=== PATIENT | female | born 1995 | race Hispanic/Latino ===

== ENCOUNTER 2018-08-05 16:08 | Emergency (ER) | payer OTHER ==
--- NOTE | 2018-08-05 16:33 | EDPHYS ---
Physician Documentation [facility] Name: Juliana Boston Age: 22 yrs Sex: Female : 1995 Arrival Date: 08/05/2018 Time: 16:12 Bed 14 Private MD: ED Physician José Miguel Castro HPI: 08/05 16:30 This 22 yrs old Female presents to ER via Ambulatory with complaints of Belly jmm button infected. 16:30 The rash is located on the umbilical area. Onset: The symptoms/episode began/occurred jmm gradually, 1 month(s) ago. Associated signs and symptoms: Pertinent positives: drainage. The patient has not experienced similar symptoms in the past. This is a 22 year old female with no chronic medical conditions that presents to the ED with drainage from her umbilical region for 1 month. Patient denies fever or pain. . 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 - Social history:: Smoking status: Patient/guardian denies using tobacco. - Ebola Screening: : Patient negative for fever greater than or equal to 101.5 degrees Fahrenheit, and additional compatible Ebola Virus Disease symptoms Patient denies exposure to infectious person Patient denies travel to an Ebola-affected area in the 21 days before illness onset No symptoms or risks identified at this time. ROS: 16:30 Constitutional: Negative for fever, chills, and weight loss, Cardiovascular: Negative jmm for chest pain, palpitations, and edema, Respiratory: Negative for shortness of breath, cough, wheezing, and pleuritic chest pain, Abdomen/GI: Negative for abdominal pain, nausea, vomiting, diarrhea, and constipation. 16:30 Skin: Positive for erythema. 16:30 All other systems are negative. Exam: 16:30 Constitutional: This is a well developed, well nourished patient who is awake, alert, jmm and in no acute distress. Head/Face: atraumatic. Eyes: EOMI, no conjunctival erythema appreciated ENT: Moist Mucus Membranes Neck: Trachea midline, Supple Chest/axilla: Normal chest wall appearance and motion. Cardiovascular: Regular rate and rhythm. No edema appreciated Respiratory: Normal respirations, no respiratory distress appreciated Abdomen/GI: Non distended, soft 16:30 Skin: erythema noted to the umbilicus with foul smelling drainage appreciated. The area is non tender to palpation. No fluctuant mass is appreciated. 16:30 Neuro: Orientation: is normal, Mentation: is normal, Memory: is normal. 16:30 Psych: Behavior/mood is pleasant, cooperative. Vital Signs: 16:15 BP 122 / 70; Pulse 72; Resp 18; Temp 98.4; Pulse Ox 99% on R/A; Weight 99.79 kg; Height aj 5 ft. 5 in. (165.10 cm); 16:15 Body Mass Index 36.61 (99.79 kg, 165.10 cm) [facility]: 16:30 Patient medically screened. [facility] 16:30 Data reviewed: vital signs, nurses notes. Counseling: I had a detailed discussion with carlos the patient and/or guardian regarding: the historical points, exam findings, and any diagnostic results supporting the discharge/admit diagnosis, the need for outpatient follow up, to return to the emergency department if symptoms worsen or persist or if there are any questions or concerns that arise at home. Administered Medications: No medications were administered Disposition: 17:53 Co-signature as Attending Physician, José Miguel Castro MD. rn Disposition: 08/05/18 16:31 Discharged to Home. Impression: Cellulitis of abdominal wall. - Condition is Stable. - Discharge Instructions: Cellulitis, Adult. - Prescriptions for Bactroban 2 % Topical Ointment - Apply to affected area 1 application by TOPICAL route every 12 hours; 30 gram. Cephalexin 500 mg Oral Capsule - take 1 capsule by ORAL route every 6 hours for 10 days; 40 capsule. - Medication Reconciliation Form, Thank You Letter, Antibiotic Education, Prescription Opioid Use form. - Follow up: Private Physician; When: 2 - 3 days; Reason: Recheck today's complaints, Continuance of care, Re-evaluation by your physician. Signatures: Ami Brush RN RN ch Myers, Amanda, RN RN aj Mickail, Joel, PA PA jmm Nieto, Roman, MD MD external grinder tender: (The following items were deleted from the chart) 16:36 16:31 08/05/2018 16:31 Discharged to Home. Impression: Cellulitis of abdominal wall. ch Condition is Stable. Forms are Medication Reconciliation Form, Thank You Letter, Antibiotic Education, Prescription Opioid Use. Follow up: Private Physician; When: 2 - 3 days; Reason: Recheck today's complaints, Continuance of care, Re-evaluation by your physician. carlos
--- NOTE | 2018-08-05 16:33 | ER ---
Nurse's Notes [facility] Name: Juliana Boston Age: 22 yrs Sex: Female : 1995 Arrival Date: 08/05/2018 Time: 16:12 Bed 14 Private MD: Diagnosis: Cellulitis of abdominal wall Presentation: 08/05 16:14 Presenting complaint: Patient states: Itching and foul odor to belly button for 1 aj month. Patient went to Dr Joseph and was sent to ER. Transition of care: patient was not received from another setting of care. Onset of symptoms was July 05, 2018. Risk Assessment: Do you want to hurt yourself or someone else? Patient reports no desire to harm self or others. Initial Sepsis Screen: Does the patient meet any 2 criteria? No. Patient's initial sepsis screen is negative. Does the patient have a suspected source of infection? No. Patient's initial sepsis screen is negative. Care prior to arrival: None. 16:14 Method Of Arrival: Ambulatory aj 16:14 Acuity: OLGA 5 aj Triage Assessment: 16:15 General: Appears in no apparent distress. comfortable, Behavior is calm, cooperative, aj appropriate for age. Pain: Denies pain. Neuro: Level of Consciousness is awake, alert, obeys commands, Oriented to person, place, time, situation, Appropriate for age. Respiratory: Airway is patent Respiratory effort is even, unlabored, Respiratory pattern is regular, symmetrical. Derm: Skin is intact, is healthy with good turgor, Skin is pink, warm \T\ dry. normal. 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 - Social history:: Smoking status: Patient/guardian denies using tobacco. - Ebola Screening: : Patient negative for fever greater than or equal to 101.5 degrees Fahrenheit, and additional compatible Ebola Virus Disease symptoms Patient denies exposure to infectious person Patient denies travel to an Ebola-affected area in the 21 days before illness onset No symptoms or risks identified at this time. Screenin:30 Abuse screen: Denies threats or abuse. Denies injuries from another. Nutritional ch screening: No deficits noted. Tuberculosis screening: No symptoms or risk factors identified. Fall Risk None identified. Assessment: 16:30 Reassessment: Patient appears in no apparent distress at this time. Patient and/or ch family updated on plan of care and expected duration. Pain level reassessed. Patient is alert, oriented x 3, equal unlabored respirations, skin warm/dry/pink. General: Appears in no apparent distress. comfortable, Behavior is calm, cooperative, appropriate for age. Pain: Complains of pain in umbilical area Pain currently is 2 out of 10 on a pain scale. Neuro: Level of Consciousness is awake, alert, obeys commands, Oriented to person, place, time, situation. Respiratory: No deficits noted. GI: Abdomen is obese, Bowel sounds present X 4 quads. Abd is soft and non tender X 4 quads. Derm: Skin is pink, warm \T\ dry. pt belly button is slightly red and inflamed, pt has slight foul smell from it. no discharge noted, it is not tender to palpation, no masses felt. Vital Signs: 16:15 BP 122 / 70; Pulse 72; Resp 18; Temp 98.4; Pulse Ox 99% on R/A; Weight 99.79 kg; Height aj 5 ft. 5 in. (165.10 cm); 16:15 Body Mass Index 36.61 (99.79 kg, 165.10 cm) ED Course: 16:12 Patient arrived in ED. mr 16:15 Triage completed. 16:15 Arm band placed on left wrist. Patient placed in an exam room. 16:17 Ami Brush, RN is Primary Nurse. 16:19 Ishmael Leach PA is PHCP. [facility] 16:19 José Miguel Castro MD is Attending Physician. [facility] 16:30 No apparent distress. Resting quietly. 16:30 Patient has correct armband on for positive identification. Bed in low position. Call light in reach. 16:30 No provider procedures requiring assistance completed. Patient did not have IV access ch during this emergency room visit. Administered Medications: No medications were administered Outcome: 16:31 Discharge ordered by . [facility] 16:33 Discharged to home ambulatory, with family. 16:33 Condition: stable 16:33 Discharge instructions given to patient, Instructed on discharge instructions, follow up and referral plans. medication usage, Demonstrated understanding of instructions, follow-up care, medications, Prescriptions given X 2. 16:36 Patient left the ED. ch Signatures: Aim Brush RN RN ch Myers, Amanda, RN RN aj Mickail, Joel, PA PA jmm Rivera, Valerie mr Corrections: (The following items were deleted from the chart) 16:38 16:33 Discharge instructions given to patient, Instructed on discharge instructions, follow up and referral plans. medication usage, Demonstrated understanding of instructions, follow-up care, medications, Prescriptions given X 1, ch
[2018-08-05 17:54] VITALS: BP 122/70; TEMP 98.4; O2SAT 99
== END 2018-08-05 16:36 | disposition home or self-care (01) ==
LOC: ER 16:08
DX: L03.311 Cellulitis of abdominal wall (principal)
CPT/HCPCS: 99282

== ENCOUNTER 2018-08-22 18:21 | Emergency (ER) | payer OTHER ==
--- NOTE | 2018-08-22 20:18 | ER ---
Nurse's Notes [facility] Name: Juliana Boston Age: 22 yrs Sex: Female : 1995 Arrival Date: 08/22/2018 Time: 18:26 Bed 20 Private MD: Diagnosis: Cellulitis of abdominal wall Presentation: 08/22 18:42 Presenting complaint: Patient states: I had a in 2014 and the site is painful la1 and a little discolored. Transition of care: patient was not received from another setting of care. Onset of symptoms was August 22, 2018. Risk Assessment: Do you want to hurt yourself or someone else? Patient reports no desire to harm self or others. Initial Sepsis Screen: Does the patient meet any 2 criteria? No. Patient's initial sepsis screen is negative. Does the patient have a suspected source of infection? No. Patient's initial sepsis screen is negative. Care prior to arrival: None. 18:42 Method Of Arrival: Ambulatory la1 18:42 Acuity: OLGA 3 la1 Triage Assessment: 20:30 General: Behavior is calm. lp1 Historical: - Allergies: 18:43 No Known Allergies; la1 - PMHx: 18:43 None; la1 - Immunization history:: Adult Immunizations up to date. - Social history:: Smoking status: Patient/guardian denies using tobacco. - Ebola Screening: : No symptoms or risks identified at this time. - Family history:: not pertinent. - Hospitalizations: : No recent hospitalization is reported. Screenin:54 Abuse screen: Denies threats or abuse. Denies injuries from another. Nutritional lp1 screening: No deficits noted. Tuberculosis screening: No symptoms or risk factors identified. Fall Risk None identified. Assessment: 20:15 General: Appears in no apparent distress. Pain: Complains of pain in left lower lp1 quadrant. Neuro: No deficits noted. Cardiovascular: No deficits noted. Respiratory: No deficits noted. GI: No deficits noted. : No deficits noted. EENT: No deficits noted. Derm: Abscess located on left lower quadrant is dime sized. Musculoskeletal: No deficits noted. Vital Signs: 18:43 BP 123 / 73; Pulse 74; Resp 16; Temp 98.1; Pulse Ox 98% on R/A; Weight 99.79 kg; Height la1 5 ft. 5 in. (165.10 cm); 20:29 BP 107 / 71; Pulse 78; Resp 16; Pulse Ox 99% on R/A; lp1 18:43 Body Mass Index 36.61 (99.79 kg, 165.10 cm) la1 ED Course: 18:26 Patient arrived in ED. sb2 18:43 Triage completed. la1 18:43 Arm band placed on right wrist. la1 19:45 José Miguel Castro MD is Attending Physician. rn 19:54 Niurka Diaz, RN is Primary Nurse. lp1 19:55 Patient has correct armband on for positive identification. lp1 19:55 No provider procedures requiring assistance completed. Patient did not have IV access lp1 during this emergency room visit. Administered Medications: 20:29 Drug: Clindamycin 300 mg Route: PO; lp1 20:29 Follow up: Response: Medication administered at discharge. lp1 Outcome: 20:18 Discharge ordered by . rn 20:30 Discharged to home ambulatory. lp1 20:30 Condition: good 20:30 Discharge instructions given to patient, Instructed on discharge instructions, follow up and referral plans. medication usage, Demonstrated understanding of instructions, follow-up care, medications, Prescriptions given X 1. 20:31 Patient left the ED. lp1 Signatures: José Miguel Castro MD MD rn Pena, Laura RN RN lp1 Valdez Martínez RN RN la1 Lela Joseph sb2
--- NOTE | 2018-08-22 20:19 | EDPHYS ---
Physician Documentation [facility] Name: Juliana Boston Age: 22 yrs Sex: Female : 1995 Arrival Date: 08/22/2018 Time: 18:26 Bed 20 Private MD: ED Physician José Miguel Castro HPI: 08/22 20:15 This 22 yrs old Female presents to ER via Ambulatory with complaints of Post rn Problem. 20:15 the patient presents with a swollen area of the abdomen. Onset: The symptoms/episode rn began/occurred yesterday. Possible cause(s): unknown. Severity of symptoms: At their worst the symptoms were very mild, in the emergency department the symptoms are unchanged. The patient has not experienced similar symptoms in the past. Reports mild redness and swelling to left side of wound, was 3 years ago, has always had pain there, but last couple of days with swelling and redness, + drainage, no fever. . Historical: - Allergies: 18:43 No Known Allergies; la1 - PMHx: 18:43 None; la1 - Immunization history:: Adult Immunizations up to date. - Social history:: Smoking status: Patient/guardian denies using tobacco. - Ebola Screening: : No symptoms or risks identified at this time. - Family history:: not pertinent. - Hospitalizations: : No recent hospitalization is reported. ROS: 20:15 Constitutional: Negative for fever, chills, and weight loss, Eyes: Negative for injury, rn pain, redness, and discharge, Cardiovascular: Negative for chest pain, palpitations, and edema, Respiratory: Negative for shortness of breath, cough, wheezing, and pleuritic chest pain, Abdomen/GI: + lower abd pain at wound site MS/Extremity: Negative for injury and deformity, Skin: + redness at lateral edge of wound Neuro: Negative for headache, weakness, numbness, tingling, and seizure. Exam: 20:15 Constitutional: This is a well developed, well nourished patient who is awake, alert, rn and in no acute distress. Abdomen/GI: soft, non-tender, + mild erythema and induration left lateral edge of scar, no drainage, no fluctuance. Vital Signs: 18:43 BP 123 / 73; Pulse 74; Resp 16; Temp 98.1; Pulse Ox 98% on R/A; Weight 99.79 kg; Height la1 5 ft. 5 in. (165.10 cm); 20:29 BP 107 / 71; Pulse 78; Resp 16; Pulse Ox 99% on R/A; lp1 18:43 Body Mass Index 36.61 (99.79 kg, 165.10 cm) la1 MDM: 19:45 Patient medically screened. rn 20:15 Differential diagnosis: cellulitis. Data reviewed: vital signs, nurses notes, and as a rn result, I will discharge patient. Counseling: I had a detailed discussion with the patient and/or guardian regarding: the historical points, exam findings, and any diagnostic results supporting the discharge/admit diagnosis, the need for outpatient follow up, to return to the emergency department if symptoms worsen or persist or if there are any questions or concerns that arise at home. Special discussion: I discussed with the patient/guardian in detail that at this point there is no indication for admission to the hospital. It is understood, however, that if the symptoms persist or worsen the patient needs to return immediately for re-evaluation. Based on the history and exam findings, there is no indication for further emergent testing or inpatient evaluation. I discussed with the patient/guardian the need to see the primary care provider for further evaluation of the symptoms. ED course: Recommended warm compresses and abx, for early cellulitis, no fluctuance, already draining, no deep abd tenderness, return precautions given and understood. . Administered Medications: 20:29 Drug: Clindamycin 300 mg Route: PO; lp1 20:29 Follow up: Response: Medication administered at discharge. lp1 Disposition: 18 20:18 Discharged to Home. Impression: Cellulitis of abdominal wall. - Condition is Stable. - Discharge Instructions: Cellulitis, Adult. - Prescriptions for Clindamycin HCl 300 mg Oral Capsule - take 1 capsule by ORAL route every 6 hours for 10 days; 40 capsule. - Medication Reconciliation Form, Thank You Letter, Antibiotic Education, Prescription Opioid Use form. - Follow up: Private Physician; When: 2 - 3 days; Reason: Wound Recheck, Recheck today's complaints, Re-evaluation by your physician. - Problem is new. - Symptoms have improved. Signatures: José Miguel Castro MD MD rn Pena, Laura, RN RN lp1 Valdez Martínez RN RN la1 Corrections: (The following items were deleted from the chart) 20:31 20:18 08/22/2018 20:18 Discharged to Home. Impression: Cellulitis of abdominal wall. lp1 Condition is Stable. Forms are Medication Reconciliation Form, Thank You Letter, Antibiotic Education, Prescription Opioid Use. Follow up: Private Physician; When: 2 - 3 days; Reason: Wound Recheck, Recheck today's complaints, Re-evaluation by your physician. Problem is new. Symptoms have improved. rn
[2018-08-22] MEDS ORDERED: CLINDAMYCIN HCL 150 MG CAP ONE (20:29)
[2018-08-22 20:54] VITALS: TEMP 98.1
[2018-08-22 20:56] VITALS: BP 107/71; O2SAT 99
== END 2018-08-22 20:31 | disposition home or self-care (01) ==
LOC: ER 18:21
DX: L03.311 Cellulitis of abdominal wall (principal)
CPT/HCPCS: 99283

== ENCOUNTER 2019-05-06 12:15 | Emergency (ER) | payer OTHER ==
--- OUTSIDE RECORDS SUMMARY | 2019-05-06 12:17 | XMS REPORT | Summary of Care ---
:1995 Author Organization [facility] - Health Address [address] [place] [id number] Care Team Providers Name Role Phone Loretta Zheng Henry MOTTA Primary Care Provider Encounter Details Date Type Department Care Team Description 04/14/2019 Orders Only [facility] Doctor Unassigned, No [address] [facility] Name [place] [id number] [address] [place] [address] Allergies No Known Allergiesdocumented as of this encounter (statuses as of 04/15/2019) Medications Medication Sig Dispensed Refills Start Date End Date Status PNV 67-iron ps-folate Take 1 capsule by 30 capsule 6 04/01/2019 Active no.1-dha (VITAFOL mouth daily. ULTRA) 29 mg iron- 1 mg-200 mg CapIndications: High-risk in first trimester documented as of this encounter (statuses as of 04/15/2019) Active Problems Problem Noted Date Complete 04/05/2019 Acute cystitis without hematuria 04/05/2019 Susceptible to varicella (non-immune), currently 04/04/2019 History of delivery, currently 04/01/2019 Obesity affecting , antepartum 04/01/2019 High-risk in first trimester 04/01/2019 History of depression, currently 04/01/2019 Bleeding in early 04/01/2019 Multiparity 04/01/2019 documented as of this encounter (statuses as of 04/15/2019) Resolved Problems Problem Noted Date Resolved Date Well woman exam with routine gynecological exam 12/12/2015 04/01/2019 Screen for STD (sexually transmitted disease) 12/12/2015 04/01/2019 Contraception 12/12/2015 04/01/2019 Initiation of OCP (BCP) 12/12/2015 04/01/2019 documented as of this encounter (statuses as of 04/15/2019) Immunizations Name Administration Dates Next Due Tdap 12/03/2014 documented as of this encounter Social History Tobacco Use Types Packs/Day Years Used Date Never Smoker Smokeless Tobacco: Never Used Alcohol Use Drinks/Week oz/Week Comments No 0 Standard drinks or equivalent 0.0 Sex Assigned at Date Recorded Not on file Job Start Date Occupation Industry Not on file Not on file Not on file Travel History Travel Start Travel End No recent travel history available. documented as of this encounter Last Filed Vital Signs Not on filedocumented in this encounter Plan of Treatment Date Type Specialty Care Team Description 04/18/2019 Routine Visit [facility] [employer]ellites Loretta Zheng, [employer] SUPERVIS[employer] [address] [place], [place] [id number] Health Maintenance Due Date Last Done Comments MENINGOCOCCAL B VACCINES (1 of 2005 2 - Risk Bexsero 2-dose series) VARICELLA VACCINES (1 of 2 - 2008 13+ 2-dose series) HPV VACCINES (1 - Female 2010 3-dose series) PAP SMEAR 2016 INFLUENZA VACCINE 05/22/2019 CHLAMYDIA SCREENING 04/01/2020 04/01/2019, 12/12/2015 DTaP,Tdap,and Td Vaccines (2 - 12/03/2024 12/03/2014 Td) PNEUMOCOCCAL 0-64 YEARS Aged Out No longer eligible based COMBINED SERIES on patient's age to complete this topic documented as of this encounter Procedures Procedure Name Priority Date/Time Associated Diagnosis Comments AUTHORIZATION FOR RELEASE Routine 04/14/2019 12:01 AM OF PHI CDT documented in this encounter Results Not on filedocumented in this encounter Insurance Payer Benefit Plan / Subscriber ID Effective Phone Address Type Group Dates [facility] xxxxxxxxx 2015-[facility] [phone] [place] [id number] [place] [address] [facility] xxxxxxxxx 2019-[employer] Medicaid [employer] nt HEALTH PLAN - MANAGED MEDICAID documented as of this encounter
--- OUTSIDE RECORDS SUMMARY | 2019-05-06 12:17 | XMS REPORT ---
:1995 Author [facility] Address [address] [place] [address] Dr. Craig[address] [place] [id number] Care Team Providers Name Role Phone Unavailable Unavailable Unavailable Problems This patient has no known problems. Allergies, Adverse Reactions, Alerts This patient has no known allergies or adverse reactions. Medications This patient has no known medications.
--- NOTE | 2019-05-06 13:06 | ER ---
Nurse's Notes [facility] Name: Juliana Boston Age: 23 yrs Sex: Female : 1995 Arrival Date: 05/06/2019 Time: 12:17 Bed 11 Private MD: Jami Hand Diagnosis: Contact Dermatitis Presentation: 05/06 12:19 Presenting complaint: Patient states: I have an itchy rash on my upper left calf area. la1 I am allergic to poison rebecca and Im not sure it that's what it is but it might be. Transition of care: patient was not received from another setting of care. Onset of symptoms was May 06, 2019. Risk Assessment: Do you want to hurt yourself or someone else? Patient reports no desire to harm self or others. Initial Sepsis Screen: Does the patient meet any 2 criteria? No. Patient's initial sepsis screen is negative. Does the patient have a suspected source of infection? No. Patient's initial sepsis screen is negative. Care prior to arrival: None. 12:19 Method Of Arrival: Ambulatory la1 12:19 Acuity: OLGA 4 la1 Historical: - Allergies: 12:20 No Known Allergies; la1 - PMHx: 12:20 None; la1 - Immunization history:: Adult Immunizations up to date. - Social history:: Smoking status: Patient/guardian denies using tobacco. - Ebola Screening: : No symptoms or risks identified at this time. Screenin:27 Abuse screen: Denies threats or abuse. Nutritional screening: No deficits noted. la1 Tuberculosis screening: No symptoms or risk factors identified. Fall Risk None identified. Assessment: 12:26 General: Appears in no apparent distress. Behavior is calm, cooperative. Pain: Denies la1 pain. Neuro: Level of Consciousness is awake, alert, obeys commands, Oriented to person, place, time, situation. Cardiovascular: Capillary refill < 3 seconds Patient's skin is warm and dry. Respiratory: Airway is patent Respiratory effort is even, unlabored, Respiratory pattern is regular, symmetrical. GI: No signs and/or symptoms were reported involving the gastrointestinal system. : No signs and/or symptoms were reported regarding the genitourinary system. Derm: Red, raised, urticaric, maculopapular rash noted to left proximal posterior thigh. Vital Signs: 12:20 BP 103 / 83; Pulse 82; Resp 16; Temp 98.6; Pulse Ox 98% on R/A; Weight 108.86 kg; la1 Height 5 ft. 5 in. (165.10 cm); 12:20 Body Mass Index 39.94 (108.86 kg, 165.10 cm) la1 ED Course: 12:17 Patient arrived in ED. rg4 12:17 Jami Hand MD is Private Physician. rg4 12:17 [facility] m 12:17 José Miguel Castro MD is Attending Physician. jmm 12:20 Triage completed. la1 12:20 Arm band placed on left wrist. la1 12:26 Valdez Martínez, RN is Primary Nurse. la1 12:27 Call light in reach. la1 13:05 Jami Hand MD is Referral Physician. [facility] Administered Medications: No medications were administered Outcome: 13:05 Discharge ordered by MD. [facility] 13:19 Patient left the ED. iw Signatures: Ishmael Leach PA PA jmm Williams, Irene, RN HERVE Valdez Martínez, RN RN Claire Malloy rg4
--- NOTE | 2019-05-06 13:06 | EDPHYS ---
Physician Documentation [facility] Name: Juliana Boston Age: 23 yrs Sex: Female : 1995 Arrival Date: 05/06/2019 Time: 12:17 Bed 11 Private MD: Jami Hand ED Physician José Miguel Castro HPI: 05/06 12:20 This 23 yrs old Female presents to ER via Ambulatory with complaints of Rash. jmm 12:20 The patient's rash thought to be caused by Dermatitis. The rash is located on the right jmm leg and left leg. Onset: The symptoms/episode began/occurred gradually, 2 day(s) ago. Associated signs and symptoms: Pertinent positives: itching, Pertinent negatives: fever. This is a 23 year old female with no chronic medical conditions that presents to the ED with complaints of an itchy rash which has spread from her left leg to her right leg. Patient states she was exposed to an unknown plant in her mothers backyard prior to developing the rash. Patient states she is allergic to poison rebecca. . Historical: - Allergies: 12:20 No Known Allergies; la1 - PMHx: 12:20 None; la1 - Immunization history:: Adult Immunizations up to date. - Social history:: Smoking status: Patient/guardian denies using tobacco. - Ebola Screening: : No symptoms or risks identified at this time. ROS: 12:20 Constitutional: Negative for fever, chills, and weight loss, Cardiovascular: Negative jmm for chest pain, palpitations, and edema, Respiratory: Negative for shortness of breath, cough, wheezing, and pleuritic chest pain. 12:20 Skin: Positive for rash. 12:20 All other systems are negative. Exam: 12:20 Head/Face: atraumatic. Eyes: EOMI, no conjunctival erythema appreciated ENT: Moist jmm Mucus Membranes Neck: Trachea midline, Supple Chest/axilla: Normal chest wall appearance and motion. Cardiovascular: Regular rate and rhythm. No edema appreciated Respiratory: Normal respirations, no respiratory distress appreciated Abdomen/GI: Non distended, soft Back: Normal ROM 12:20 MS/ Extremity: Moves all extremities, no obvious deformities appreciated, no edema noted to the lower extremities Neuro: Awake and alert, normal gait Psych: Behavior is normal, Mood is normal, Patient is cooperative and pleasant 12:20 Constitutional: The patient appears in no acute distress, alert, awake. 12:20 Skin: erythematous rash noted to the right and left leg, most pronounced on the posterior left leg. non tender to palpation. . Vital Signs: 12:20 BP 103 / 83; Pulse 82; Resp 16; Temp 98.6; Pulse Ox 98% on R/A; Weight 108.86 kg; la1 Height 5 ft. 5 in. (165.10 cm); 12:20 Body Mass Index 39.94 (108.86 kg, 165.10 cm) la1 MDM: 12:21 Patient medically screened. [facility] 13:05 Data reviewed: vital signs, nurses notes. Counseling: I had a detailed discussion with [facility] the patient and/or guardian regarding: the historical points, exam findings, and any diagnostic results supporting the discharge/admit diagnosis, the need for outpatient follow up, to return to the emergency department if symptoms worsen or persist or if there are any questions or concerns that arise at home. 13:05 ED course: Patient is alert and non toxic in appearance. Rash appears due to [facility] dermatitis. Patient advised to follow up with pcp and otherwise given strict return precautions. Patient understood and agrees with the plan of care. . Administered Medications: No medications were administered Disposition: 18:09 Co-signature as Attending Physician, José Miguel Castro MD. rn Disposition: 05/06/19 13:05 Discharged to Home. Impression: Contact Dermatitis. - Condition is Stable. - Discharge Instructions: Contact Dermatitis. - Prescriptions for Hydroxyzine HCl 25 mg Oral Tablet - take 1 tablet by ORAL route every 6 hours As needed; 12 tablet. Prednisone 20 mg Oral Tablet - take 3 tablet by ORAL route once daily for 12 days Take 3 tabs by mouth daily for 3 days, then 2 tabs by mouth daily for 3 days, then 1 tab by mouth daily for 3 days, then 1/2 tab by mouth daily for 3 days; 20 tablet. - Medication Reconciliation Form, Thank You Letter, Antibiotic Education, Prescription Opioid Use form. - Follow up: Jami Hand MD; When: 2 - 3 days; Reason: Recheck today's complaints, Continuance of care, Re-evaluation by your physician. Signatures: Ishmael Leach PA PA m Norm, Francisca, RN RN iw Castro, José Miguel, MD MD rn Attema, Valdez, RN RN la1 Corrections: (The following items were deleted from the chart) 13:19 13:05 05/06/2019 13:05 Discharged to Home. Impression: Contact Dermatitis. Condition is iw Stable. Forms are Medication Reconciliation Form, Thank You Letter, Antibiotic Education, Prescription Opioid Use. Follow up: Jami Hand; When: 2 - 3 days; Reason: Recheck today's complaints, Continuance of care, Re-evaluation by your physician. carlos
[2019-05-06 13:28] VITALS: BP 103/83; TEMP 98.6; O2SAT 98
== END 2019-05-06 13:19 | disposition home or self-care (01) ==
LOC: ER 12:15
DX: L25.9 Unspecified contact dermatitis, unspecified cause (principal)
CPT/HCPCS: 99281

== ENCOUNTER 2024-09-16 23:46 | Emergency (ER) | payer SELFPAY ==
--- OUTSIDE RECORDS SUMMARY | 2024-09-16 23:51 | XMS REPORT | Continuity of Care Document ---
Author Name Unknown Address [address] [facility]. [address] [place] [address] [facility] thconnect Address [address] [facility] [address] [place] [address] Care Team Providers Care Airborne And Air Delivery Specialist Name Role Phone PCP, PATIENT DOES NOT HAVE A Primary Care Physic dheeraj Unavailable OBIE PANCHAL Attending Clinician Unavailable SAMIRA TARANGO Attending Clinician Unavailable VALENTINA RANGEL Attending Clinician Unavailable JENAE MYRICK Attending Clinician UnavailJENAE Holden Attending Clinician UnavailCARYN Vivar Attending Clinician Unavailable Pcp, Patient Does Not Have A Attending Clinician JOSE DALEY Attending Clinician JOSE Summers Attending Clinician Caryn Calvo MD Attending Clinician [phone], [facility] Attending Clinician Unavailable Doctor Unassigned, Manuel Garcia Ii Attending Clinician U navailable Lab, Ang - Db Attending Clinician Unavailable Ultrasound, Ang-Mfm Attending Clinician Meaghan Birmingham MD Attending Clinician [phone] MEAGHAN BRONSON Attending Clinician Unavailable Precious Gutiérrez MD Attending Clinician + PRECIOUS GUTIÉRREZ MEGAN Attending Clinician Unav ailable DAMI DELEON Attending Clinician Unavailable Dami Deleon MD Attending Clinician [phone] JOSELIN GILMAN Attending Clinician Unavailable Joselin Gilman MD Attending Clinician [phone] DOYLE-GRAHAM, JOSE Admitting Clinician CARYN Calvo Admitting Clinician Unavailable Caryn Chavira MD Admitting Clinician [phone] JOSELIN GILMAN Admitting Clinician Unavailable Payers Payer Name Policy Type Policy Number Effective Date Expirati on Date Source [place] [employer] [id number] 2022 00:00:00 Problems Condition Name Condition Details Condition Category Status Onset Date Resolution Date Last Treatment Date Treating Clinician Comments Source BMI 40.0-44.9, adult BMI 40.0-44.9, adult Disease Active 8- 00:00: 00 [facility] Encounter for post surgical wound check Encounter for post surgical wound check Disease Active 0 8-15 00:00: 00 [facility] Edema of both feet Edema of both feet Disease Active 0 8-15 00:00: 00 [facility] Liveborn infant, of mata , born in hospital by delivery Liveborn , of mata , born in hospital by delivery Disease Active 8-09 00:00: 00 [facility] Term of Term of infant Disease Active 0 8-07 00:00: 00 [facility] Rupture of membranes with meconium present Rupture of membranes with meconium present Disease Active 0 8-07 00:00: 00 [facility] Sore in mouth Sore in mouth Disease Active 0 8-02 00:00: 00 [facility] 27 weeks gestation of 27 weeks gestation of Disease Active 5-22 00:00: 00 Overview: Formattin g of this note might be different from the original. Added automatic ally from request for surgery [id number] [facility] Need for Tdap vaccinatio n Need for Tdap vaccinatio n Disease Active 5-22 00:00: 00 Overview: Formattin g of this note might be different from the original. Added automatic ally from request for surgery [id number] [facility] High-risk in second trimester High-risk in second trimester Disease Active 5-19 00:00: 00 [facility] Fatty liver Fatty liver Disease Active 4-14 00:00: 00 [facility] History of anemia History of anemia Disease Active 4-14 00:00: 00 [facility] Morbid obesity with body mass index of 40.0-49.9 Morbid obesity with body mass index of 40.0-49.9 Disease Active 3-14 00:00: 00 [facility] Obesity (BMI 35.0-39.9 without comorbidit y) Obesity (BMI 35.0-39.9 without comorbidit y) Disease Active 3-14 00:00: 00 [facility] Nausea Nausea Disease Active 2-17 00:00: 00 [facility] Complete Complete Disease Active 16 00:00: 00 [facility] Acute cystitis without hematuria Acute cystitis without hematuria Disease Active 16 00:00: 00 [facility] Susceptibl e to varicella (non-immun e), currently Susceptibl e to varicella (non-immun e), currently Disease Active 15 00:00: 00 [facility] Multiparit y Multiparit y Disease Active 04-01 00:00: 00 [facility] Bleeding in early Bleeding in early Disease Active 04-01 00:00: 00 [facility] History of delivery, currently History of delivery, currently Disease Active 04-01 00:00: 00 [facility] Obesity affecting , antepartum Obesity affecting , antepartum Disease Active 04-01 00:00: 00 [facility] High-risk in third trimester High-risk in third trimester Disease Active 04-01 00:00: 00 [facility] , incidental , incidental Disease Active 04-01 00:00: 00 [facility] History of depression , currently History of depression , currently Disease Active 04-01 00:00: 00 [facility] Bleeding in early Bleeding in early Disease Active 04-01 00:00: 00 [facility] Encounter for routine follow-up Encounter for routine follow-up Disease Active 3 00:00: 00 [facility] Allergies, Adverse Reactions, Alerts Allergy Name Allergy Type Status Severity Reaction(s) Onset Date Inactive Date Treating Clinician Comments Source NO KNOWN ALLERGIE S Drug Class Active [facility] Social History Social Habit Start Date Stop Date Quantity Comments Source ASSERTION 2022-08-10 00:00:00 [facility] Gender identity [facility] Sexual orientation [facility] Exposure to SARS-CoV-2 (event) 2023-01-27 00:00:00 2023-02-06 12:57:00 Not sure [facility] Alcohol intake 2023-01-02 00:00:00 2023-01-02 00:00:00 Ex-drinker (finding) [facility] Tobacco use and exposure 2022-11-07 00:00:00 2022-11-07 00:00:00 Smokeless tobacco non-user [facility] History of Social function 2019-04-01 00:00:00 2019-04-01 00:00:00 [facility] Sex Assigned At 1995 00:00:00 1995 00:00:00 [facility] Smoking Status Start Date Stop Date Source Never smoked tobacco [facility] Medications Ordered Medication Name Filled Medication Name Start Date Stop Date Current Medication? Ordering Clinician Indication Dosage Frequency Signature (SIG) Comments Components Source PNV no.95/lashonda us fum/folic ac ( ORAL) 04-29 12:57: 46 04-29 00:00 :00 No Take by mouth. [facility] SELECT-OB + DHA 29 mg iron-1 mg -250 mg combo pack 04-29 00:00: 00 Yes TAKE 1 CAPLET AND 1 CAPSULE BY MOUTH IN THE MORNING. [facility] vitamin w/FA tablet 04-29 00:00: 00 Yes [id number] 1{tbl} Take 1 tablet by mouth in the morning. [facility] docusate 100 mg capsule 04-29 00:00: 00 Yes [id number] 200mg Take 2 capsules by mouth once daily as needed for Constipati on. [facility] ferrous sulfate 325 mg (65 mg iron) tablet 04-29 00:00: 00 Yes [id number] 325mg Take 1 tablet by mouth in the morning and 1 tablet in the evening. [facility] ibuprofen 600 mg tablet 04-29 00:00: 00 Yes [id number] 600mg Take 1 tablet by mouth every 6 (six) hours as needed (Pain). Take with food or milk. [facility] acetaminoph en (TYLENOL) 325 mg tablet 04-29 00:00: 00 Yes [id number] 650mg Take 2 tablets by mouth every 6 (six) hours as needed for Pain (scale 1-3) or Pain (scale 4-6). [facility] HYDROcodone -acetaminop hen 5-325 mg tablet 04-29 00:00: 00 05-07 04:59 :00 No [id number] 1{tbl} Take 1 tablet by mouth every 6 (six) hours as needed for Pain (scale 4-6) (Alternate with Ibuprofen) for up to 7 days. Indication s: acute pain [facility] gabapentin 300 mg capsule 04-29 00:00: 00 05-05 04:59 :00 No [id number] 300mg Take 1 capsule by mouth in the morning and 1 capsule at noon and 1 capsule in the evening. Do all this for 5 days. [facility] heparin (porcine) injection 5,000 Units 04-28 13:00: 00 Yes 5000U 5,000 Units, Subcutaneo us, Q12H, First dose on Thu04/28/23 at 0800, Until Discontinu ed, Routine [facility] sodium chloride 0.9 % irrigation solution 04-28 05:00: 00 Yes PRN, Starting on Thu04/28/23 at 0000, Until Discontinu ed, Intra-op [facility] naloxone (NARCAN) injection 0.2 mg 04-28 04:23: 39 Yes .2mg 0.2 mg, Intramuscu lar, Q3HPRN, Starting on Thu04/27/23 at 2323, Until Discontinu ed, Routine, Itching [facility] naloxone (NARCAN) injection 0.4 mg 04-28 04:23: 39 04-29 15:02 :22 No .4mg 0.4 mg, Slow IV Push, PRN - SEE INSTRUCTIO NS, Starting on Thu04/27/23 at 2323, Until Thu04/29/23 at 1002, Routine, Analgesia Recovery [facility] lactated ringers IV infusion 1,000 mL 04-28 04:15: 00 04-28 08:21 :40 No 1000mL at 125 mL/hr, 1,000 mL, IV Infusion, ONCE, 1 dose, On Thu04/27/23 at 2315, Routine [facility] rho(D) immune globulin (RHOGAM) syringe 300 mcg 04-28 03:30: 09 Yes 300ug 300 mcg, Intramuscu lar, ONCE, For 1 dose, Conditiona l, Routine [facility] HYDROcodone -acetaminop hen (NORCO 5) 5-325 mg tablet 2 tablet 04-28 03:29: 53 Yes 2{tbl} 2 tablet, Oral, Q6HPRN, Starting on Thu04/27/23 at 2229, Until Discontinu ed, Routine, Pain (scale 7-10), Alternate with Ibuprofen [facility] HYDROcodone -acetaminop hen (NORCO 5) 5-325 mg tablet 1 tablet 04-28 03:29: 50 Yes 1{tbl} 1 tablet, Oral, Q6HPRN, Starting on Thu04/27/23 at 2229, Until Discontinu ed, Routine, Pain (scale 4-6), Alternate with Ibuprofen [facility] ibuprofen (IBU) tablet 600 mg 04-28 03:29: 46 Yes 600mg 600 mg, Oral, Q6HPRN, Starting on Thu04/27/23 at 2229, Until Discontinu ed, Routine, Pain (scale 1-3) [facility] diphenhydrA MINE (BENADRYL) injection 25 mg 04-28 03:28: 08 Yes 25mg 25 mg, Slow IV Push, Q6HPRN, Starting on Thu04/27/23 at 2228, Until Discontinu ed, Routine, Itching [facility] diphenhydrA MINE (BENADRYL) tablet 25 mg 04-28 03:28: 08 Yes 25mg 25 mg, Oral, Q6HPRN, Starting on Thu04/27/23 at 2228, Until Discontinu ed, Routine, Sleep, Itching [facility] ondansetron (ZOFRAN (PF)) injection 4 mg 04-28 03:28: 08 Yes 4mg 4 mg, Slow IV Push, Q8HPRN, Starting on Thu04/27/23 at 2228, Until Discontinu ed, Routine, Nausea and Vomiting (N/V) [facility] bisacodyL (DULCOLAX) suppository 10 mg 04-28 03:28: 08 Yes 10mg 10 mg, Rectal, QDAILYPRN, Starting on Thu04/27/23 at 2228, Until Discontinu ed, Routine, Constipati on [facility] simethicone (GAS RELIEF (SIMETHICON E)) chewable tablet 160 mg 04-28 03:28: 08 Yes 160mg 160 mg, Oral, PC+HSPRN, Starting on Thu04/27/23 at 2228, Until Discontinu ed, Routine, Gas [facility] docusate (COLACE) capsule 200 mg 04-28 03:28: 08 Yes 200mg 200 mg, Oral, QDAILYPRN, Starting on Thu04/27/23 at 2228, Until Discontinu ed, Routine, Constipati on [facility] magnesium hydroxide (MILK OF MAGNESIA) 400 mg/5 mL suspension 30 mL 04-28 03:28: 08 Yes 30mL 30 mL, Oral, QDAILYPRN, Starting on Thu04/27/23 at 2228, Until Discontinu ed, Routine, Constipati on [facility] lactated ringers IV infusion 1,000 mL 04-28 03:28: 08 Yes 1000mL at 125 mL/hr, 1,000 mL, IV Infusion, PRN, 1 dose, Starting on Thu04/27/23 at 2228, Until Discontinu ed, Routine [facility] ceFAZolin (ANCEF) 2,000 mg in NaCl 0.9% (NS) 100 mL MINI-BAG 04-28 03:00: 58 04-28 03:39 :00 No 2000mg 2,000 mg, IV Piggyback, O.R. HOLDING ONCE, 1 dose, Starting on Thu04/27/23 at 2200, Until Thu04/28/23 at 2359, Administer over 30 Minutes, 100 mL
Reas on for Anti-Infec tive: Surgical Prophylaxi s
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
Duration of therapy: within 24 hours of surgery [facility] sodium citrate-cit kayley acid (BICITRA) 500-334 mg/5 mL solution 30 mL 04-28 02:32: 42 04-28 03:05 :00 No 30mL 30 mL, Oral, PRE-PROCED URE ONCE, 1 dose, Starting on Thu04/27/23 at 2132, Until Discontinu ed, Routine, Surgery/Pr ocedure [facility] PNV no.95/lashonda us fum/folic ac ( ORAL) 04-27 22:30: 10 Yes Take by mouth. [facility] PNV no.95/lashonda us fum/folic ac ( ORAL) 04-21 18:34: 39 Yes Take by mouth. [facility] PNV no.95/lashonda us fum/folic ac ( ORAL) 8- 16:16: 45 Yes Take by mouth. [facility] lactated ringers IV infusion 1,000 mL 04-20 04:45: 00 04-20 16:44 :00 No 1000mL at 999 mL/hr, 1,000 mL, IV Infusion, ONCE, 1 dose, On 04/19/23 at 2345, STAT [facility] PNV no.95/lashonda us fum/folic ac ( ORAL) 04-19 01:02: 04 Yes Take by mouth. [facility] acyclovir 400 mg tablet 04-01 00:00: 00 04-29 00:00 :00 No [id number] 400mg Take 1 tablet by mouth in the morning and 1 tablet at noon and 1 tablet in the evening. [facility] PNV no.95/lashonda us fum/folic ac ( ORAL) 02-19 17:45: 35 Yes Take by mouth. [facility] fluconazole 150 mg tablet 3-16 00:00: 00 12-05 04:59 :00 No [id number] 150mg Take 1 tablet by mouth once now for 1 dose. [facility] cephALEXin 500 mg capsule 2- 00:00: 00 11-19 05:59 :00 No [id number] 500mg Take 1 capsule by mouth 4 (four) times daily for 7 days. [facility] PNV no.95/lashonda us fum/folic ac ( ORAL) - 14:54: 53 Yes Take by mouth. [facility] pyridoxine, VITAMIN B-6, (VITAMIN B-6) 25 mg tablet - 00:00: 00 04-29 00:00 :00 No [id number] 25mg Take 1 tablet by mouth every 6 (six) hours as needed for Nausea and Vomiting (N/V). [facility] doxylamine (UNISOM, DOXYLAMINE, ) 25 mg tablet 11-07 00:00: 00 04-29 00:00 :00 No [id number] 25mg Take 1 tablet by mouth at bedtime as needed for Nausea and Vomiting (N/V). [facility] methocarbam oL (ROBAXIN) tablet 500 mg 2021-09 06:00: 00 08-23 05:10 :00 No 500mg 500 mg, Oral, ONCE, 1 dose, [facility] 0000[facility] 60 mg 2021-09 05:45: 00 08-23 05:45 :00 No 60mg 60 mg, Intramuscu lar, ONCE, 1 dose, [facility] 08[facility]22/22 [facility] 2345[facility] methylPREDN ISolone 4 mg tablets 2021-09 00:00: 00 11-07 00:00 :00 No [id number] Take by mouth SEE-INSTRU CTIONS. follow package directions [facility] methocarbam oL 750 mg tablet 2021-09 00:00: 00 11-07 00:00 :00 No [id number] 750mg Take 1 tablet by mouth 4 (four) times daily. [facility] PNV 67-iron ps-folate no.1-dha (VITAFOL ULTRA) 29 mg iron- 1 mg-200 mg Cap 2019-0 7-12 00:00: 00 11-07 00:00 :00 No [id number] 1{capsu le} Take 1 capsule by mouth daily. [facility] Immunizations Ordered Immunization Name Filled Immunization Name Date Status Comments Source TDAP 2023-02-06 00:00:00 Completed [facility] TDAP 2023-02-06 00:00:00 Completed [facility] TDAP 2023-02-06 00:00:00 Completed [facility] TDAP 2023-02-06 00:00:00 Completed [facility] TDAP 2023-02-06 00:00:00 Completed [facility] TDAP 2023-02-06 00:00:00 Completed [facility] TDAP 2023-02-06 00:00:00 Completed [facility] TDAP 2023-02-06 00:00:00 Completed [facility] TDAP 2023-02-06 00:00:00 Completed [facility] TDAP 2023-02-06 00:00:00 Completed [facility] TDAP 2023-02-06 00:00:00 Completed [facility] TDAP 2023-02-06 00:00:00 Completed [facility] TDAP 2023-02-06 00:00:00 Completed [facility] TDAP 2023-02-06 00:00:00 Completed [facility] TDAP 2023-02-06 00:00:00 Completed [facility] TDAP 2023-02-06 00:00:00 Completed [facility] TDAP 2023-02-06 00:00:00 Completed [facility] TDAP 2023-02-06 00:00:00 Completed [facility] Influenza Virus Vaccine Quad IM, Preserv and ABX Free 6 MO-64 YRS 2022-11-07 00:00:00 Completed [facility] Influenza Virus Vaccine Quad IM, Preserv and ABX Free 6 MO-64 YRS 2022-11-07 00:00:00 Completed [facility] Influenza Virus Vaccine Quad IM, Preserv and ABX Free 6 MO-64 YRS 2022-11-07 00:00:00 Completed [facility] Influenza Virus Vaccine Quad IM, Preserv and ABX Free 6 MO-64 YRS 2022-11-07 00:00:00 Completed [facility] Influenza Virus Vaccine Quad IM, Preserv and ABX Free 6 MO-64 YRS 2022-11-07 00:00:00 Completed [facility] Influenza Virus Vaccine Quad IM, Preserv and ABX Free 6 MO-64 YRS 2022-11-07 00:00:00 Completed [facility] Influenza Virus Vaccine Quad IM, Preserv and ABX Free 6 MO-64 YRS 2022-11-07 00:00:00 Completed [facility] Influenza Virus Vaccine Quad IM, Preserv and ABX Free 6 MO-64 YRS 2022-11-07 00:00:00 Completed [facility] Influenza Virus Vaccine Quad IM, Preserv and ABX Free 6 MO-64 YRS 2022-11-07 00:00:00 Completed [facility] Influenza Virus Vaccine Quad IM, Preserv and ABX Free 6 MO-64 YRS 2022-11-07 00:00:00 Completed [facility] Influenza Virus Vaccine Quad IM, Preserv and ABX Free 6 MO-64 YRS 2022-11-07 00:00:00 Completed [facility] Influenza Virus Vaccine Quad IM, Preserv and ABX Free 6 MO-64 YRS 2022-11-07 00:00:00 Completed [facility] Influenza Virus Vaccine Quad IM, Preserv and ABX Free 6 MO-64 YRS 2022-11-07 00:00:00 Completed [facility] Influenza Virus Vaccine Quad IM, Preserv and ABX Free 6 MO-64 YRS 2022-11-07 00:00:00 Completed [facility] Influenza Virus Vaccine Quad IM, Preserv and ABX Free 6 MO-64 YRS 2022-11-07 00:00:00 Completed [facility] Influenza Virus Vaccine Quad IM, Preserv and ABX Free 6 MO-64 YRS 2022-11-07 00:00:00 Completed [facility] Influenza Virus Vaccine Quad IM, Preserv and ABX Free 6 MO-64 YRS 2022-11-07 00:00:00 Completed [facility] Influenza Virus Vaccine Quad IM, Preserv and ABX Free 6 MO-64 YRS 2022-11-07 00:00:00 Completed [facility] Influenza Virus Vaccine Quad IM, Preserv and ABX Free 6 MO-64 YRS 2022-11-07 00:00:00 Completed [facility] Influenza Virus Vaccine Quad IM, Preserv and ABX Free 6 MO-64 YRS 2022-11-07 00:00:00 Completed [facility] Influenza Virus Vaccine Quad IM, Preserv and ABX Free 6 MO-64 YRS 2022-11-07 00:00:00 Completed [facility] Influenza Virus Vaccine Quad IM, Preserv and ABX Free 6 MO-64 YRS 2022-11-07 00:00:00 Completed [facility] Influenza Virus Vaccine Quad IM, Preserv and ABX Free 6 MO-64 YRS 2022-11-07 00:00:00 Completed [facility] Influenza Virus Vaccine Quad IM, Preserv and ABX Free 6 MO-64 YRS 2022-11-07 00:00:00 Completed [facility] Influenza Virus Vaccine Quad IM, Preserv and ABX Free 6 MO-64 YRS 2022-11-07 00:00:00 Completed [facility] Influenza Virus Vaccine Quad IM, Preserv and ABX Free 6 MO-64 YRS 2022-11-07 00:00:00 Completed [facility] Influenza Virus Vaccine Quad IM, Preserv and ABX Free 6 MO-64 YRS 2022-11-07 00:00:00 Completed [facility] Influenza Virus Vaccine Quad IM, Preserv and ABX Free 6 MO-64 YRS 2022-11-07 00:00:00 Completed [facility] Influenza Virus Vaccine Quad IM, Preserv and ABX Free 6 MO-64 YRS 2022-11-07 00:00:00 Completed [facility] Influenza Virus Vaccine Quad IM, Preserv and ABX Free 6 MO-64 YRS 2022-11-07 00:00:00 Completed [facility] Influenza Virus Vaccine Quad IM, Preserv and ABX Free 6 MO-64 YRS 2022-11-07 00:00:00 Completed [facility] Influenza Virus Vaccine Quad IM, Preserv and ABX Free 6 MO-64 YRS 2022-11-07 00:00:00 Completed [facility] Influenza Virus Vaccine Quad IM, Preserv and ABX Free 6 MO-64 YRS 2022-11-07 00:00:00 Completed [facility] Influenza Virus Vaccine Quad IM, Preserv and ABX Free 6 MO-64 YRS 2022-11-07 00:00:00 Completed [facility] Influenza Virus Vaccine Quad IM, Preserv and ABX Free 6 MO-64 YRS 2022-11-07 00:00:00 Completed [facility] Influenza Virus Vaccine Quad IM, Preserv and ABX Free 6 MO-64 YRS 2022-11-07 00:00:00 Completed [facility] Influenza Virus Vaccine Quad IM, Preserv and ABX Free 6 MO-64 YRS 2022-11-07 00:00:00 Completed [facility] Influenza Virus Vaccine Quad IM, Preserv and ABX Free 6 MO-64 YRS 2022-11-07 00:00:00 Completed [facility] Influenza Virus Vaccine Quad IM, Preserv and ABX Free 6 MO-64 YRS 2022-11-07 00:00:00 Completed [facility] TDAP 2014-12-03 00:00:00 Completed [facility] TDAP 2014-12-03 00:00:00 Completed [facility] TDAP 2014-12-03 00:00:00 Completed [facility] TDAP 2014-12-03 00:00:00 Completed [facility] Tdap 2014-12-03 00:00:00 Completed [facility] TDAP 2014-12-03 00:00:00 Completed [facility] TDAP 2014-12-03 00:00:00 Completed [facility] TDAP 2014-12-03 00:00:00 Completed [facility] TDAP 2014-12-03 00:00:00 Completed [facility] TDAP 2014-12-03 00:00:00 Completed [facility] TDAP 2014-12-03 00:00:00 Completed [facility] TDAP 2014-12-03 00:00:00 Completed [facility] TDAP 2014-12-03 00:00:00 Completed [facility] TDAP 2014-12-03 00:00:00 Completed [facility] TDAP 2014-12-03 00:00:00 Completed [facility] TDAP 2014-12-03 00:00:00 Completed [facility] TDAP 2014-12-03 00:00:00 Completed [facility] TDAP 2014-12-03 00:00:00 Completed [facility] TDAP 2014-12-03 00:00:00 Completed [facility] TDAP 2014-12-03 00:00:00 Completed [facility] TDAP 2014-12-03 00:00:00 Completed [facility] TDAP 2014-12-03 00:00:00 Completed [facility] TDAP 2014-12-03 00:00:00 Completed [facility] TDAP 2014-12-03 00:00:00 Completed [facility] TDAP 2014-12-03 00:00:00 Completed [facility] TDAP 2014-12-03 00:00:00 Completed [facility] TDAP 2014-12-03 00:00:00 Completed [facility] TDAP 2014-12-03 00:00:00 Completed [facility] TDAP 2014-12-03 00:00:00 Completed Formerly [facility] TDAP 2014-12-03 00:00:00 Completed [facility] TDAP 2014-12-03 00:00:00 Completed [facility] TDAP 2014-12-03 00:00:00 Completed [facility] TDAP 2014-12-03 00:00:00 Completed [facility] TDAP 2014-12-03 00:00:00 Completed [facility] TDAP 2014-12-03 00:00:00 Completed [facility] TDAP 2014-12-03 00:00:00 Completed [facility] TDAP 2014-12-03 00:00:00 Completed [facility] TDAP 2014-12-03 00:00:00 Completed [facility] TDAP 2014-12-03 00:00:00 Completed [facility] TDAP 2014-12-03 00:00:00 Completed [facility] TDAP 2014-12-03 00:00:00 Completed [facility] TDAP 2014-12-03 00:00:00 Completed [facility] TDAP Unknown Completed [facility] Influenza Virus Vaccine Quad IM, Preserv and ABX Free 6 MO-64 YRS (FLUCELVAX) Unknown Completed [facility]ly [facility] TDAP Unknown Completed [facility] Influenza Virus Vaccine Quad IM, Preserv and ABX Free 6 MO-64 YRS (FLUCELVAX) Unknown Completed [facility] Vital Signs Vital Name Observation Time Observation Value Comments S ource Systolic blood pressure 2023-05-05 15:12:00 113 mm[Hg] [facility] Diastolic blood pressure 2023-05-05 15:12:00 77 mm[Hg] [facility] Heart rate 2023-05-05 15:12:00 66 /min [facility] Respiratory rate 2023-05-05 15:12:00 18 /min [facility] Body height 2023-05-05 15:12:00 167.6 cm [facility] Body weight 2023-05-05 15:12:00 114.76 kg [facility]ly [facility] BMI 2023-05-05 15:12:00 40.84 kg/m2 [facility] Systolic blood pressure 2023-04-29 13:30:00 110 mm[Hg] [facility] Diastolic blood pressure 2023-04-29 13:30:00 63 mm[Hg] [facility] Heart rate 2023-04-29 13:30:00 68 /min [facility] Body temperature 2023-04-29 13:30:00 36.56 Azeb [facility] Respiratory rate 2023-04-29 13:30:00 17 /min [facility] Oxygen saturation in Arterial blood by Pulse oximetry 2023-04-29 13:30:00 100 /min [facility] Body height 2023-04-28 02:48:00 167.6 cm [facility] Body weight 2023-04-28 02:48:00 122.3 kg [facility] BMI 2023-04-28 02:48:00 43.52 kg/m2 [facility] Heart rate 2023-04-28 03:15:00 75 /min [facility] Oxygen saturation in Arterial blood by Pulse oximetry 2023-04-28 03:15:00 100 /min [facility] Systolic blood pressure 2023-04-28 03:00:00 137 mm[Hg] [facility] Diastolic blood pressure 2023-04-28 03:00:00 84 mm[Hg] [facility] Body height 2023-04-28 02:48:00 167.6 cm [facility] Body weight 2023-04-28 02:48:00 122.3 kg [facility] BMI 2023-04-28 02:48:00 43.52 kg/m2 [facility] Body temperature 2023-04-28 01:58:00 37.06 Azeb [facility] Respiratory rate 2023-04-28 01:58:00 18 /min [facility] Heart rate 2023-04-21 22:45:00 88 /min [facility] Oxygen saturation in Arterial blood by Pulse oximetry 2023-04-21 22:45:00 100 /min [facility] Systolic blood pressure 2023-04-21 22:30:00 104 mm[Hg] [facility] Diastolic blood pressure 2023-04-21 22:30:00 53 mm[Hg] [facility] Respiratory rate 2023-04-21 22:30:00 18 /min [facility] Body height 2023-04-21 21:40:00 170.2 cm [facility] Body weight 2023-04-21 21:40:00 122.29 kg [facility] BMI 2023-04-21 21:40:00 42.23 kg/m2 [facility] Systolic blood pressure 2023-04-21 15:43:00 116 mm[Hg] [facility] Diastolic blood pressure 2023-04-21 15:43:00 69 mm[Hg] [facility] Heart rate 2023-04-21 15:43:00 78 /min [facility] Body temperature 2023-04-21 15:43:00 36.61 Azeb [facility] Body height 2023-04-21 15:43:00 170.2 cm [facility] Body weight 2023-04-21 15:43:00 121.201 kg [facility] BMI 2023-04-21 15:43:00 41.85 kg/m2 [facility] Heart rate 2023-04-19 05:30:00 75 /min [facility] Oxygen saturation in Arterial blood by Pulse oximetry 2023-04-19 05:30:00 100 /min [facility] Systolic blood pressure 2023-04-19 05:00:00 120 mm[Hg] [facility] Diastolic blood pressure 2023-04-19 05:00:00 66 mm[Hg] [facility] Body temperature 2023-04-19 03:51:00 36.94 Azeb [facility] Respiratory rate 2023-04-19 03:51:00 18 /min [facility] Body height 2023-04-19 03:37:00 170.2 cm [facility] Body weight 2023-04-19 03:37:00 121.065 kg [facility]ly [facility] BMI 2023-04-19 03:37:00 41.80 kg/m2 [facility] Systolic blood pressure 2023-04-14 13:30:00 112 mm[Hg] [facility] Diastolic blood pressure 2023-04-14 13:30:00 79 mm[Hg] [facility] Heart rate 2023-04-14 13:30:00 86 /min [facility] Body temperature 2023-04-14 13:30:00 36.72 Azeb [facility] Respiratory rate 2023-04-14 13:30:00 18 /min [facility] Body height 2023-04-14 13:30:00 167.6 cm [facility] Body weight 2023-04-14 13:30:00 119.75 kg [facility]ly [facility] BMI 2023-04-14 13:30:00 42.61 kg/m2 [facility] Systolic blood pressure 2023-03-31 15:41:00 108 mm[Hg] [facility] Diastolic blood pressure 2023-03-31 15:41:00 70 mm[Hg] [facility] Heart rate 2023-03-31 15:41:00 79 /min [facility] Body temperature 2023-03-31 15:41:00 36.78 Azeb [facility] Respiratory rate 2023-03-31 15:41:00 18 /min [facility] Body height 2023-03-31 15:41:00 167.6 cm [facility] Body weight 2023-03-31 15:41:00 118.978 kg [facility] BMI 2023-03-31 15:41:00 42.34 kg/m2 [facility] Systolic blood pressure 2023-03-18 15:43:00 112 mm[Hg] [facility] Diastolic blood pressure 2023-03-18 15:43:00 72 mm[Hg] [facility] Heart rate 2023-03-18 15:43:00 74 /min [facility] Respiratory rate 2023-03-18 15:43:00 18 /min [facility] Body height 2023-03-18 15:43:00 165.1 cm [facility] Body weight 2023-03-18 15:43:00 121.11 kg [facility]ly [facility] BMI 2023-03-18 15:43:00 44.43 kg/m2 [facility] Systolic blood pressure 2023-03-06 16:06:00 116 mm[Hg] [facility] Diastolic blood pressure 2023-03-06 16:06:00 65 mm[Hg] [facility] Heart rate 2023-03-06 16:06:00 76 /min [facility] Body temperature 2023-03-06 16:06:00 36.5 Azeb [facility] Respiratory rate 2023-03-06 16:06:00 18 /min [facility] Body height 2023-03-06 16:06:00 167.6 cm [facility] Body weight 2023-03-06 16:06:00 119.296 kg [facility]ly [facility] BMI 2023-03-06 16:06:00 42.45 kg/m2 [facility] Systolic blood pressure 2023-02-20 16:11:00 107 mm[Hg] [facility] Diastolic blood pressure 2023-02-20 16:11:00 64 mm[Hg] [facility] Heart rate 2023-02-20 16:11:00 76 /min [facility] Body temperature 2023-02-20 16:11:00 36.56 Azeb [facility] Body height 2023-02-20 16:11:00 167.6 cm [facility] Body weight 2023-02-20 16:11:00 118.48 kg [facility] BMI 2023-02-20 16:11:00 42.16 kg/m2 [facility] Heart rate 2023-02-19 22:15:00 88 /min [facility] Oxygen saturation in Arterial blood by Pulse oximetry 2023-02-19 22:15:00 100 /min [facility] Systolic blood pressure 2023-02-19 21:40:00 94 mm[Hg] left lateral; to better monitor baby; due to obese abdomen [facility] Diastolic blood pressure 2023-02-19 21:40:00 47 mm[Hg] left lateral; to better monitor baby; due to obese abdomen [facility] Body temperature 2023-02-19 21:40:00 36.72 Azeb [facility] Respiratory rate 2023-02-19 21:40:00 18 /min [facility] Body height 2023-02-19 21:14:00 167.6 cm [facility] Body weight 2023-02-19 21:14:00 119.523 kg [facility]ly [facility] BMI 2023-02-19 21:14:00 42.53 kg/m2 [facility] Systolic blood pressure 2023-02-06 18:06:00 106 mm[Hg] [facility] Diastolic blood pressure 2023-02-06 18:06:00 67 mm[Hg] [facility] Heart rate 2023-02-06 18:06:00 75 /min [facility] Body temperature 2023-02-06 18:06:00 36.56 Azeb [facility] Respiratory rate 2023-02-06 18:06:00 18 /min [facility] Body height 2023-02-06 18:06:00 167.6 cm [facility] Body weight 2023-02-06 18:06:00 119.931 kg [facility]ly [facility] BMI 2023-02-06 18:06:00 42.68 kg/m2 [facility] Systolic blood pressure 2023-01-02 18:33:00 120 mm[Hg] [facility] Diastolic blood pressure 2023-01-02 18:33:00 73 mm[Hg] [facility] Heart rate 2023-01-02 18:33:00 76 /min [facility] Body temperature 2023-01-02 18:33:00 36.33 Azeb [facility] Respiratory rate 2023-01-02 18:33:00 20 /min [facility] Body height 2023-01-02 18:33:00 167.6 cm [facility] Body weight 2023-01-02 18:33:00 118.298 kg [facility]ly [facility] BMI 2023-01-02 18:33:00 42.09 kg/m2 [facility] Systolic blood pressure 2022-12-02 18:53:00 118 mm[Hg] [facility] Diastolic blood pressure 2022-12-02 18:53:00 65 mm[Hg] [facility] Heart rate 2022-12-02 18:53:00 75 /min [facility] Body temperature 2022-12-02 18:53:00 36.33 Azeb [facility] Body height 2022-12-02 18:53:00 170.2 cm [facility] Body weight 2022-12-02 18:53:00 118.933 kg Formerly [facility] BMI 2022-12-02 18:53:00 41.07 kg/m2 [facility] Systolic blood pressure 2022-11-07 20:53:00 121 mm[Hg] [facility] Diastolic blood pressure 2022-11-07 20:53:00 77 mm[Hg] [facility] Heart rate 2022-11-07 20:53:00 74 /min [facility] Body temperature 2022-11-07 20:53:00 36.72 Azeb [facility] Body height 2022-11-07 20:53:00 170.2 cm [facility] Body weight 2022-11-07 20:53:00 118.57 kg [facility] BMI 2022-11-07 20:53:00 40.94 kg/m2 [facility] Heart rate 2022-08-23 06:00:00 94 /min [facility] Respiratory rate 2022-08-23 06:00:00 18 /min [facility] Oxygen saturation in Arterial blood by Pulse oximetry 2022-08-23 06:00:00 100 /min [facility] Systolic blood pressure 2022-08-23 04:04:00 151 mm[Hg] [facility] Diastolic blood pressure 2022-08-23 04:04:00 100 mm[Hg] [facility] Body temperature 2022-08-23 04:01:00 37.5 Azeb [facility] Body height 2022-08-23 04:01:00 170.2 cm [facility] Body weight 2022-08-23 04:01:00 115.214 kg [facility]ly [facility] BMI 2022-08-23 04:01:00 39.78 kg/m2 [facility] Procedures Procedure Date / Time Performed Performing Clinician Source CBC WITH DIFF 2023-04-28 21:08:00 Vivek-Humble Graham l [facility] SECTION 2023-04-28 03:23:00 Doyle-Santos Serenity isol [facility]ly [facility] SECTION 2023-04-28 03:23:00 Doyle-Graham, Serenity isol [facility] CBC WITH DIFF 2023-04-28 02:40:00 Doyle-Santos Carolynn l [facility]ly [facility] HEPATITIS B SURFACE ANTIGEN 2023-04-28 02:40:00 Doyle-Graham, [facility] HB ABO GROUPING 2023-04-28 02:40:00 Doyle-Graham, [facility] RHO (D) IMMUNE GLOBULIN 2023-04-28 02:40:00 Doyle-Janette is [facility] ADC OR PRETTY ONLY - RPR 2023-04-28 02:40:00 Doyle-[facility] HIV 1/2 AG-AB WITH REFLEX 2023-04-28 02:40:00 Doyle-Graham, [facility] CBC WITH DIFF 2023-04-28 02:40:00 Doyle-Graham [facility] HEPATITIS B SURFACE ANTIGEN 2023-04-28 02:40:00 Doyle-Graham, [facility] HB ABO GROUPING 2023-04-28 02:40:00 Doyle-Graham [facility] RHO (D) IMMUNE GLOBULIN 2023-04-28 02:40:00 Doyle-Janette is, [facility] ADC OR PRETTY ONLY - RPR 2023-04-28 02:40:00 Doyle-Graham, [facility] HIV 1/2 AG-AB WITH REFLEX 2023-04-28 02:40:00 Doyle-[facility] NOTICE OF PRIVACY PRACTICES 2023-04-28 01:53:46 Doctor Unassigned, Manuel Garcia Ii [facility] NOTICE OF PRIVACY PRACTICES 2023-04-28 01:53:46 Doctor Unassigned, Manuel Garcia Ii [facility] CONSENT/REFUSAL FOR DIAGNOSIS AND TREATMENT 2023-04-21 21:21:07 Doctor Unassigned, Manuel Garcia Ii [facility] ASSIGNMENT OF BENEFITS 2023-04-21 21:17:07 Docto r Unassigned, Manuel Garcia Ii [facility] POCT URINALYSIS W/O SPECIFIC GRAVITY 2023-04-21 00:00:00 Adum, Caryn Peña [facility] ASSIGNMENT OF BENEFITS 2023-04-19 03:31:31 Docto r Unassigned, Manuel Garcia Ii [facility] CONSENT/REFUSAL FOR DIAGNOSIS AND TREATMENT 2023-04-19 03:30:27 Doctor Unassigned, Manuel Garcia Ii [facility] >14 WEEKS US LIMITED 2023-04-14 14:31:09 Adum, Caryn Peña [facility] DSU PRE-OP 2023-04-14 05:01:00 Doctor Unass igned, Manuel Garcia Ii [facility] POCT URINALYSIS W/O SPECIFIC GRAVITY 2023-04-14 00:00:00 Adum, Caryn Peña [facility] POCT URINALYSIS W/O SPECIFIC GRAVITY 2023-03-18 00:00:00 Jenae Myrick [facility] POCT URINALYSIS W/O SPECIFIC GRAVITY 2023-03-06 00:00:00 Adum, Caryn Peña [facility] POCT URINALYSIS W/O SPECIFIC GRAVITY 2023-02-20 00:00:00 Adum, Caryn Peña [facility] ASSIGNMENT OF BENEFITS 2023-02-19 20:59:21 Docto r Unassigned, Manuel Garcia Ii [facility] CONSENT/REFUSAL FOR DIAGNOSIS AND TREATMENT 2023-02-19 20:58:57 Doctor Unassigned, Manuel Garcia Ii [facility] TDAP VACCINE, >11 YRS, IM 2023-02-06 18:16:37 Adum, Caryn Peña [facility] POCT URINALYSIS W/O SPECIFIC GRAVITY 2023-02-06 18:10:00 Adum, Caryn Peña [facility] EXTERNAL PROVIDER RECORDS 2023-01-08 05:01:00 Doctor Unassigned, Manuel Garcia Ii [facility] URINE CULTURE 2023-01-02 18:47:00 [facility] AUTHOR[facility] TO RELEASE PHI TO [facility] 2023-01-02 05:01:00 Doctor Unassigned, Manuel Garcia Ii [facility] POCT URINALYSIS W/O SPECIFIC GRAVITY 2023-01-02 00:00:00 AdCaryn frost [facility] EXTERNAL PROVIDER RECORDS 2022-12-11 05:01:00 Doctor Unassigned, Manuel Garcia Ii [facility] PATIENT FINANCIAL POLICY 2022-12-02 18:45:46 Doctor Unassigned, Manuel Garcia Ii [facility] POCT URINALYSIS W/O SPECIFIC GRAVITY 2022-12-02 00:00:00 Adum, Caryn Peña [facility] SCANNED LAB RESULTS 2022-11-10 06:01:00 Doctor Serge dnoovan, Manuel Garcia Ii [facility] FLU VACC (), 6 MO-64 YRS, .5ML, IM, QUAD (FLUCELVAX) 2022-11-07 20:58:25 Dami Deleon [facility] POCT TEST 2022-11-07 00:00:00 Dami Deleon [facility] POCT URINALYSIS W/O SPECIFIC GRAVITY 2022-11-07 00:00:00 Dami Deleon [facility] XR CERVICAL SPINE 3 VW 2022-08-23 05:26:38 Perico Gilman [facility] XR SHOULDER 2+ VW LEFT 2022-08-23 05:26:38 Perico Gilman [facility] POCT TEST 2022-08-23 04:51:00 Sander Gilman [facility] NOTICE OF PRIVACY PRACTICES 2022-08-23 03:51:17 Doctor Unassigned, Manuel Garcia Ii [facility] AUTHORIZATION FOR RELEASE OF PHI 2020-12-15 05:01:00 Doctor Unassigned, Manuel Garcia Ii [facility] AUTHORIZATION FOR RELEASE OF PHI 2019-04-14 05:01:00 Doctor Unassigned, Manuel Garcia Ii [facility] Encounters Start Date/Time End Date/Time Encounter Type Admission Type Attending [facility] Care Facility Care Department Encounter ID Source 2023-04-19 01:02:12 Outpatient X [facility] [id number] [facility] 2023-02-19 17:45:50 Outpatient P [facility] [id number] [facility] 2024-09-15 15:00:00 2024-09-15 15:00:00 Outpatient R OBIE PANCHAL [facility] [id number] [facility] 2024-07-11 09:30:00 2024-07-11 09:30:00 Outpatient R SAMIRA TARANGO [facility] [id number] [facility] 2024-07-04 14:00:00 2024-07-04 14:00:00 Outpatient R SAMIRA TARANGO [facility] [id number] [facility] 2023-06-22 16:00:00 2023-06-22 16:00:00 Outpatient R JENAE MYRICK CHERYAL [facility] [id number] [facility] 2023-06-22 13:30:00 2023-06-22 13:30:00 Outpatient R JENAE MYRICK CHERYAL [facility] [id number] [facility] 2023-06-10 11:00:00 2023-06-10 11:00:00 Outpatient R CARYN CHAVIRA [facility] [id number] [facility] 2023-05-05 10:30:00 2023-05-05 11:06:45 Outpatient R JENAE MYRICK CHERYAL [facility] [id number] [facility] 2023-05-05 10:30:00 2023-05-05 11:06:45 Routine Visit Jenae Myrick [facility] 1.2.840.114 350.1.13.10 4.2.7.2.686 [id number] 134 [id number] [facility] 2023-05-04 00:00:00 2023-05-04 00:00:00 Patient Secure Msg Pcp, Patient Does Not Have A [facility] 1.2.840.114 350.1.13.10 4.2.7.2.686 [id number] [facility] 2023-04-27 21:05:00 2023-04-29 17:45:00 Inpatient P DOYLE-LASHONDA S, JOSE DOYLE-LASHONDA S, JOSE RIMB [facility] [id number] [facility] 2023-04-27 21:05:00 2023-04-29 17:45:00 Hospital Encounter Doyle-Lashonda s, Jose [facility] 1.2840.114 350.1.13.10 4.2.7.2.686 [id number] [facility] 2023-04-27 21:50:00 2023-04-27 23:42:00 Surgery Doyle-Lashonda s, Jose [facility] 1.2840.114 350.1.13.10 4.2.7.2.686 [id number] [facility] 2023-04-21 16:16:00 2023-04-21 18:00:00 Outpatient P CARYN CHAVIRA [facility] [id number] [facility] 2023-04-21 16:16:00 2023-04-21 18:00:00 Hospital Encounter AdCaryn frost Mariana [facility] 1.2840.114 350.1.13.10 4.2.7.2.686 [id number] [facility] 2023-04-21 10:30:00 2023-04-21 12:08:54 Outpatient R ERNESTOMARGOT CARYN [facility] [id number] [facility] 2023-04-21 10:30:00 2023-04-21 12:08:54 Routine Visit ErnestomargotCaryn [facility] 1.2840.114 350.1.13.10 4.2.7.2.686 [id number] 134 [id number] [facility] 2023-04-21 00:00:00 2023-04-21 00:00:00 Telephone Adum, Caryn Peña [facility] 1.2.840.114 350.1.13.10 4.2.7.2.686 [id number] [facility] 2023-04-18 22:38:00 2023-04-19 00:55:00 Outpatient X DOYLE-LASHONDA S, JOSE DOYLE-LASHONDA S, JOSE [facility] [id number] [facility] 2023-04-18 22:38:00 2023-04-19 00:55:00 Emergency Doyle-Lashonda s, Jose [facility] 1..840.114 350.1.13.10 4.2.7.2.686 [id number] [facility] 2023-04-14 10:00:00 2023-04-14 10:15:00 Wall Washer Visit 2, Adc Lab Adum, Caryn Peña [facility] 1.2.840.114 350.1.13.10 4.2.7.2.686 [id number] [facility] 2023-04-14 08:15:00 2023-04-14 09:19:51 Outpatient R ADUM, CARYN [facility] [id number] [facility] 2023-04-14 08:15:00 2023-04-14 09:19:51 Routine Visit Adum, Caryn Peña [facility] 1.2.840.114 350.1.13.10 4.2.7.2.686 [id number] [facility] 2023-04-14 00:00:00 2023-04-14 00:00:00 Orders Only Doctor Unassigned, Manuel Garcia Ii [facility] 1.2.840.114 350.1.13.10 4.2.7.2.686 [id number] [facility] 2023-04-10 16:15:00 2023-04-10 16:15:00 Outpatient R CARYN CHAVIRA [facility] [id number] [facility] 2023-04-01 00:00:00 2023-04-01 00:00[facility]114 350.1.13.10 4.2.7.2.686 [id number] [facility] 2023-03-31 13:00:00 2023-03-31 13:30:21 Wall Washer Visit Lab, [facility] 1..840.114 350.1.13.10 4.2.7.2.686 [id number] [facility] 2023-03-31 10:30:00 2023-03-31 10:47:33 Outpatient R JENAE MYRICK CHERYAL [facility] [id number] [facility] 2023-03-31 10:30:00 2023-03-31 10:47:33 Routine Visit Jenae Myrick [facility] 1..840.114 350.1.13.10 4.2.7.2.686 [id number] [facility] 2023-03-31 10:30:00 2023-03-31 10:30:00 Outpatient R JENAE MYRICK [facility] [id number] [facility] 2023-03-31 10:30:00 2023-03-31 10:30:00 Out[facility] [id number] [facility] 2023-03-18 10:45:00 2023-03-18 10:50:37 Outpatient R JENAE MYRICK CHERYAL [facility] [id number] [facility] 2023-03-18 10:45:00 2023-03-18 10:50:37 Routine Visit AshleyJenae potts [facility] 1.2840.114 350.1.13.10 4.2.7.2.686 [id number] [facility] 2023-03-06 10:30:00 2023-03-06 11:30:02 Outpatient R FAN CARYN [facility] [id number] [facility] 2023-03-06 10:30:00 2023-03-06 11:30:02 Routine Visit Admargot Caryn Mariana [facility] 1.2840.114 350.1.13.10 4.2.7.2.686 [id number] [facility] 2023-02-20 11:15:00 2023-02-20 12:06:50 Outpatient R FAN CARYN [facility] [id number] [facility] 2023-02-20 11:15:00 2023-02-20 12:06:50 Routine Visit Fan Caryn Peña [facility] 1.2840.114 350.1.13.10 4.2.7.2.686 [id number] 134 [id number] [facility] 2023-02-19 16:18:00 2023-02-19 17:30:00 Hospital Encounter Jose Monique [facility] 1.2840.114 350.1.13.10 4.2.7.2.686 [id number] [facility] 2023-02-06 13:15:00 2023-02-06 13:35:58 Outpatient R ADUM, CARYN [facility] [id number] [facility] 2023-02-06 13:15:00 2023-02-06 13:35:58 Routine Visit Adum, Caryn Peña [facility] 1.2.840.114 350.1.13.10 4.2.7.2.686 [id number] [facility] 2023-02-03 08:15:00 2023-02-03 08:30:00 Wall Washer Visit 2, Adc Lab Adum, Caryn [facility] 1.2.840.114 350.1.13.10 4.2.7.2.686 [id number] [facility] 2023-02-03 08:15:00 2023-02-03 08:15:00 Outpatient R ADUM, [facility] [id number] [facility] 2023-01-22 00:00:00 2023-01-22 00:00:00 Patient Secure Msg Adum, [facility] 1.2.840.114 350.1.13.10 4.2.7.2.686 [id number] 134 [id number] [facility] 2023-01-21 09:45:00 2023-01-21 10:30:00 Wall Washer Visit Ultrasound, Meaghan Arias [facility] COMBINATION MACHINE TOOL OPERATOR [facility] 1.2.840.114 350.1.13.10 4.2.7.2.686 [id number] [facility] 2023-01-21 09:45:00 2023-01-21 09:45:00 Outpatient P MEAGHAN BRONSON [facility] [id number] [facility] 2023-01-10 00:00:00 2023-01-10 00:00:00 Telephone Adum, [facility] 1.0.114 350.1.13.10 4.2.7.2.686 [id number] [facility] 2023-01-09 08:45:00 2023-01-09 08:45:00 Outpatient R [facility] [id number] [facility] 2023-01-08 00:00:00 2023-01-08 00:00:00 Orders Only Doctor Unassigned, Manuel Garcia Ii [facility] 1.0.114 350.1.13.10 4.2.7.2.686 [id number] [facility] 2023-01-05 00:00:00 2023-01-05 00:00:00 Telephone Adum, Caryn Peña [facility] 1..114 350.1.13.10 4.2.7.2.686 [id number] 134 [id number] [facility] 2023-01-02 13:15:00 2023-01-02 14:38:14 Outpatient R ADUM, CARYN [facility] [id number] [facility] 2023-01-02 13:15:00 2023-01-02 14:38:14 Routine Visit Admargot, Caryn Peña [facility] 1.0.114 350.1.13.10 4.2.7.2.686 [id number] [facility] 2023-01-02 00:00:00 2023-01-02 00:00:00 Orders Only Doctor Unassigned, Manuel Garcia Ii [facility] 1.20.114 350.1.13.10 4.2.7.2.686 [id number] [facility] 2022-12-30 00:00:00 2022-12-30 00:00:00 Case Management Adum, Caryn Peña [facility] 1.20.114 350.1.13.10 4.2.7.2.686 [id number] [facility] 2022-12-26 13:00:00 2022-12-26 14:15:00 Wall Washer Visit Ultrasound, Rubin GutiérrezPrecious Benjaminuvkristyn [facility] COMBINATION MACHINE TOOL OPERATOR [facility] 1..114 350.1.13.10 4.2.7.2.686 [id number] [facility] 2022-12-26 13:00:00 2022-12-26 13:00:00 Outpatient P PRECIOUS GUTIÉRREZ [facility] [id number] [facility] 2022-12-11 00:00:00 2022-12-11 00:00:00 Orders Only Doctor Unassigned, Manuel Garcia Ii [facility] 1..114 350.1.13.10 4.2.7.2.686 [id number] [facility] 2022-12-10 11:00:00 2022-12-10 11:00:00 Outpatient DAMI BARILLAS [facility] [id number] [facility] 2022-12-09 00:00:00 2022-12-09 00:00:00 Telephone AdumCaryn [facility] .840.114 350.1.13.10 4.2.7.2.686 [id number] 134 [id number] [facility] 2022-12-04 00:00:00 2022-12-04 00:00:00 Case Management AdumCaryn [facility] 1.84.114 350.1.13.10 4.2.7.2.686 [id number] 134 [id number] [facility] 2022-12-03 00:00:00 2022-12-03 00:00:00 Telephone AdCaryn frost [facility] 1.2.840.114 350.1.13.10 4.2.7.2.686 [id number] 134 [id number] [facility] 2022-12-02 14:00:00 2022-12-02 14:50:27 Outpatient R ERNESTOCARYN FROST [facility] [id number] [facility] 2022-12-02 14:00:00 2022-12-02 14:50:27 Routine Visit Caryn Chavira [facility] 1.840.114 350.1.13.10 4.2.7.2.686 [id number] [facility] 2022-12-02 00:00:00 2022-12-02 00:00:00 Orders Only Doctor Unassigned, Manuel Garcia Ii [facility] 1.2840.114 350.1.13.10 4.2.7.2.686 [id number] [facility] 2022-11-26 00:00:00 2022-11-26 00:00:00 Telephone DeleonDami [facility] 1.2.840.114 350.1.13.10 4.2.7.2.686 [id number] 134 [id number] [facility] 2022-11-20 00:00:00 2022-11-20 00:00:00 Telephone DeleonDami [facility] 1.2.840.114 350.1.13.10 4.2.7.2.686 [id number] [facility] 2022-11-11 00:00:00 2022-11-11 00:00:00 Case Management DeleonDami [facility] 1.2840.114 350.1.13.10 4.2.7.2.686 [id number] 134 [id number] [facility] 2022-11-10 09:30:00 2022-11-10 09:45:00 Wall Washer Visit Lab, Ang - Db Sharonda Deleonen [facility] 1.84.114 350.1.13.10 4.2.7.2.686 [id number] [facility] 2022-11-10 09:30:00 2022-11-10 09:30:00 Outpatient R ADRIENNE DAMI [facility] [id number] [facility] 2022-11-10 00:00:00 2022-11-10 00:00:00 Orders Only Doctor Unassigned, Manuel Garcia Ii [facility] 1..114 350.1.13.10 4.2.7.2.686 [id number] [facility] 2022-11-07 14:30:00 2022-11-07 15:51:46 Initial Visit Adrienne Dami Cano [facility] 1..114 350.1.13.10 4.2.7.2.686 [id number] [facility] 2022-11-07 14:30:00 2022-11-07 15:51:46 Outpatient R DAMI DELEON [facility] [id number] [facility] 2022-09-19 10:00:00 2022-09-19 10:00:00 Outpatient R CARYN CHAVIRA [facility] [id number] [facility] 2022-08-22 22:05:00 2022-08-23 00:49:00 Emergency X JOSELIN GILMAN [facility] ERT [id number] [facility] 2022-08-22 22:05:00 2022-08-23 00:49:00 Emergency Joselin Gilman [facility] 1..114 350.1.13.10 4.2.7.2.686 [id number] [facility] 2020-12-15 00:00:00 2020-12-15 00:00:00 Orders Only Doctor Unassigned, Manuel Garcia Ii [facility] 1.2.840.114 350.1.13.10 4.2.7.2.686 [id number] [facility] 2019-04-14 00:00:00 2019-04-14 00:00:00 Orders Only Doctor Unassigned, Manuel Garcia Ii [facility] 1.2.840.114 350.1.13.10 4.2.7.2.686 [id number] [facility] Results Test Description Test Time Test Comments Results Result Co mments Source [facility] (D) IMMUNE [id number] 04:16:44* Test Item Value Reference Range Interpretation Comme nts RHIG CANDIDATE? (test code = 5188) No- see comment Patient is not a candidate for RhIg- Patient is Rh Positive.Performed at [facility] Laboratory [facility] Blood [address] [place] [address] Free: [phone] No. [id number] [facility] (D) IMMUNE [id number] 04:16:44* Test Item Value Reference Range Interpretation Comme nts RHIG CANDIDATE? (test code = 5188) No- see comment Patient is not a candidate for RhIg- Patient is Rh Positive.Performed at [facility] Laboratory [facility] Blood [address] [place] [address] Free: [phone] No. [id number] [facility] - ONCE [id number] 02:55:00 * Test Item Value Reference Range Interpretation Comme nts ABO & RH (test code = 20) B Positive IAT (test code = 1185) Negative [facility] - ONCE [id number] 02:55:00 * Test Item Value Reference Range Interpretation Comme nts ABO & RH (test code = 20) B Positive IAT (test code = 1185) Negative [facility] W/O SPECIFIC [id number] 15:47:00* Test Item Value Reference Range Interpretation Comme nts POCT PH U (test code = 3254) n/a 5-8 POCT U LEUK EST (test code = 3263) n/a Negative - Negative POCT U NIT (test code = 3262) n/a Negative - Negati ve POCT U PROT (test code = 3259) Negative Negative - Negat carissa POCT U GLU (test code = 3256) Normal Negative - Negati ve POCT U KETONE (test code = 3258) n/a Negative - Neg ative POCT U BLD (test code = 3257) n/a Negative - Negati ve [facility] URINALYSIS W/O SPECIFIC [id number] 13:32:00* Test Item Value Reference Range Interpretation Comme nts POCT PH U (test code = 3254) n/a 5-8 POCT U LEUK EST (test code = 3263) n/a Negative - Negative POCT U NIT (test code = 3262) n/a Negative - Negati ve POCT U PROT (test code = 3259) Negative Negative - Negat carissa POCT U GLU (test code = 3256) Negative Negative - Negati ve POCT U KETONE (test code = 3258) n/a Negative - Neg ative POCT U BLD (test code = 3257) n/a Negative - Negati ve [facility] URINALYSIS W/O SPECIFIC [id number] 15:43:00* Test Item Value Reference Range Interpretation Comme nts POCT PH U (test code = 3254) N/A 5-8 POCT U LEUK EST (test code = 3263) N/A Negative - Negative POCT U NIT (test code = 3262) N/A Negative - Negati ve POCT U PROT (test code = 3259) Negative Negative - Negat carissa POCT U GLU (test code = 3256) Negative Negative - Negati ve POCT U KETONE (test code = 3258) N/A Negative - Neg ative POCT U BLD (test code = 3257) N/A Negative - Negati ve [facility] URINALYSIS W/O SPECIFIC [id number] 16:07:00* Test Item Value Reference Range Interpretation Comme nts POCT PH U (test code = 3254) n/a 5-8 POCT U LEUK EST (test code = 3263) n/a Negative - Negative POCT U NIT (test code = 3262) n/a Negative - Negati ve POCT U PROT (test code = 3259) Negative Negative - Negat carissa POCT U GLU (test code = 3256) Negative Negative - Negati ve POCT U KETONE (test code = 3258) n/a Negative - Neg ative POCT U BLD (test code = 3257) n/a Negative - Negati ve [facility] URINALYSIS W/O SPECIFIC [id number] 16:09:00* Test Item Value Reference Range Interpretation Comme nts POCT PH U (test code = 3254) n/a 5-8 POCT U LEUK EST (test code = 3263) n/a Negative - Negative POCT U NIT (test code = 3262) n/a Negative - Negati ve POCT U PROT (test code = 3259) Negative Negative - Negat carissa POCT U GLU (test code = 3256) Normal Negative - Negati ve POCT U KETONE (test code = 3258) n/a Negative - Neg ative POCT U BLD (test code = 3257) n/a Negative - Negati ve [facility] URINALYSIS W/O SPECIFIC [id number] 18:10:00* Test Item Value Reference Range Interpretation Comme nts POCT PH U (test code = 3254) na 5-8 POCT U LEUK EST (test code = 3263) na Negative - Negative POCT U NIT (test code = 3262) na Negative - Negative POCT U PROT (test code = 3259) negative Negative - Negative POCT U GLU (test code = 3256) negative Negative - Negative POCT U KETONE (test code = 3258) na Negative - Negative POCT U BLD (test code = 3257) na Negative - Negative IVETTE (test code = IVETTE) accurate developme nt and interpretation of all internal controls Lab Interpretation (test code = 34148-4) Normal [facility] URINALYSIS W/O SPECIFIC [id number] 18:10:00* Test Item Value Reference Range Interpretation Comme nts POCT PH U (test code = 3254) na 5-8 POCT U LEUK EST (test code = 3263) na Negative - Negative POCT U NIT (test code = 3262) na Negative - Negative POCT U PROT (test code = 3259) negative Negative - Negative POCT U GLU (test code = 3256) negative Negative - Negative POCT U KETONE (test code = 3258) na Negative - Negative POCT U BLD (test code = 3257) na Negative - Negative IVETTE (test code = IVETTE) accurate developme nt and interpretation of all internal controls Lab Interpretation (test code = 38044-2) Normal [facility] URINALYSIS W/O SPECIFIC [id number] 18:46:00* Test Item Value Reference Range Interpretation Comme nts POCT PH U (test code = 3254) n/a 5-8 POCT U LEUK EST (test code = 3263) n/a Negative - N egative POCT U NIT (test code = 3262) n/a Negative - Negati ve POCT U PROT (test code = 3259) neg Negative - Negat carissa POCT U GLU (test code = 3256) neg Negative - Negati ve POCT U KETONE (test code = 3258) n/a Negative - Neg ative POCT U BLD (test code = 3257) n/a Negative - Negati ve [facility] URINALYSIS W/O SPECIFIC [id number] 18:46:00* Test Item Value Reference Range Interpretation Comme nts POCT PH U (test code = 3254) n/a 5-8 POCT U LEUK EST (test code = 3263) n/a Negative - N egative POCT U NIT (test code = 3262) n/a Negative - Negati ve POCT U PROT (test code = 3259) neg Negative - Negat carissa POCT U GLU (test code = 3256) neg Negative - Negati ve POCT U KETONE (test code = 3258) n/a Negative - Neg ative POCT U BLD (test code = 3257) n/a Negative - Negati ve [facility] URINALYSIS W/O SPECIFIC [id number] 18:46:00* Test Item Value Reference Range Interpretation Comme nts POCT PH U (test code = 3254) n/a 5-8 POCT U LEUK EST (test code = 3263) n/a Negative - N egative POCT U NIT (test code = 3262) n/a Negative - Negati ve POCT U PROT (test code = 3259) neg Negative - Negat carissa POCT U GLU (test code = 3256) neg Negative - Negati ve POCT U KETONE (test code = 3258) n/a Negative - Neg ative POCT U BLD (test code = 3257) n/a Negative - Negati ve [facility] URINALYSIS W/O SPECIFIC [id number] 18:46:00* Test Item Value Reference Range Interpretation Comme nts POCT PH U (test code = 3254) n/a 5-8 POCT U LEUK EST (test code = 3263) n/a Negative - N egative POCT U NIT (test code = 3262) n/a Negative - Negati ve POCT U PROT (test code = 3259) neg Negative - Negat carissa POCT U GLU (test code = 3256) neg Negative - Negati ve POCT U KETONE (test code = 3258) n/a Negative - Neg ative POCT U BLD (test code = 3257) n/a Negative - Negati ve [facility] URINALYSIS W/O SPECIFIC [id number] 18:52:00* Test Item Value Reference Range Interpretation Comme nts POCT PH U (test code = 3254) n/a 5-8 POCT U LEUK EST (test code = 3263) n/a Negative - Negative POCT U NIT (test code = 3262) n/a Negative - Negati ve POCT U PROT (test code = 3259) Negative Negative - Negat carissa POCT U GLU (test code = 3256) Normal Negative - Negati ve POCT U KETONE (test code = 3258) n/a Negative - Neg ative POCT U BLD (test code = 3257) n/a Negative - Negati ve [facility] [id number] 20:57:00* Test Item Value Reference Range Interpretation Comme nts POCT PREG (test code = 1605) Positive On board controls acceptable with C Line (test code = 3574) Yes POCT PREG LOT # (test code = 3575) POCT PREG TEST DATE ( test code = 3576) [facility] URINALYSIS W/O SPECIFIC [id number] 20:57:00* Test Item Value Reference Range Interpretation Comme nts POCT PH U (test code = 3254) n/a 5-8 POCT U LEUK EST (test code = 3263) n/a Negative - Negative POCT U NIT (test code = 3262) n/a Negative - Negati ve POCT U PROT (test code = 3259) Negative Negative - Negat carissa POCT U GLU (test code = 3256) Normal Negative - Negati ve POCT U KETONE (test code = 3258) n/a Negative - Neg ative POCT U BLD (test code = 3257) n/a Negative - Negati ve [facility] [id number] 04:51:00* Test Item Value Reference Range Interpretation Comme nts POCT PREG (test code = 1605) negative Lab Interpretation (test cod e = 50201-8) Normal [facility] History and Physical Notes Date/Time Note Provider Source 2023-04-27 22:01:12 Formatting of this n ote is different from the original. ANTEPARTUM HISTORY & PHYSICAL IDENTIFYING DATA Edvin Abdullahi is 27 year old, /White, 39w1d, female with TOSHA 05/03/2023, by Ultrasound. : 1995 Primary Care Physician: PATIENT DOES NOT HAVE A PCP Hospital Day: 1 CHIEF COMPLAINT vaginal discharge/leakage of fluid HISTORY OF PRESENT ILLNESS 27 year old @ Presents with PROM and irregular contractions. Denies vb. PAST OBSTETRIC HISTORY OB History Para Term AB Living 3 1 1 1 1 SAB IAB Ectopic Multiple Live Births 1 1 # Outcome Date GA Lbr Russell/2nd Weight Sex Delivery Anes PTL Lv 3 Current 2 SAB 04/05/19 4w0d 1 Term 09/04/15 39w0d F SEC LEXY Complications: Intolerance, Failure to Progress in First Stage PAST MEDICAL HISTORY Problem list: Patient Active Problem List Diagnosis Date Noted Term of infant 04/27/2023 Rupture of membranes with meconium present 04/27/2023 Sore in mouth 04/22/2023 High-risk in second trimester 02/06/2023 Fatty liver 01/02/2023 History of anemia 01/02/2023 Morbid obesity with body mass index of 40.0-49.9 12/02/2022 Susceptible to varicella (non-immune), currently 04/04/2019 History of delivery, currently 04/01/2019 Obesity affecting , antepartum 04/01/2019 , incidental 04/01/2019 History of depression, currently 04/01/2019 Multiparity 04/01/2019 Screen for STD (sexually transmitted disease) 12/12/2015 Operations: Past Surgical History: Procedure Laterality Date SECTION CHOLECYSTECTOMY 2018 TONSILLECTOMY Prior surgeries at outside hospitals: none Past Medical History: Diagnosis Date Anemia during first Fatty liver 01/02/2023 History of anemia 01/02/2023 CURRENT HEALTH STATUS Medications: Current Facility-Administered Medications Medication Dose Route Frequency Last Rate Last Admin carboprost (HEMABATE) injection 250 mcg 250 mcg Intramuscular Q2HPRN ceFAZolin (ANCEF) 2,000 mg in NaCl 0.9% (NS) 100 mL MINI-BAG 2,000 mg IV Piggyback O.R. HOLDING ONCE D5W-LR IV infusion 1,000 mL 1,000 mL IV Infusion TITRATE lactated ringers IV infusion 500 mL 500 mL IV Infusion PRN - SEE INSTRUCTIONS lidocaine 1% (PF) (XYLOCAINE) injection 0.3 mL 0.3 mL Infiltration PRN - SEE INSTRUCTIONS lidocaine 1% (XYLOCAINE) 10 mg/mL (1 %) injection 50 mL 50 mL Infiltration PRN - SEE INSTRUCTIONS methylergonovine (METHERGINE) injection 0.2 mg 0.2 mg Intramuscular Q4HPRN miSOPROStoL (CYTOTEC) tablet 200 mcg 200 mcg Rectal PRN oxytocin (PITOCIN) 30 units in NS 500 mL IV infusion 600 mL/hr IV Infusion PRN sodium citrate-citric acid (BICITRA) 500-334 mg/5 mL solution 30 mL 30 mL Oral PRE-PROCEDURE ONCE tranexamic acid (CYKLOKAPRON) 1,000 mg in NaCl 0.9% (NS) 250 mL piggyback 1,000 mg IV Piggyback PRN Allergies and drug reactions: Patient has no known allergies. HOME MEDICATIONS Medications Prior to Admission Medication Sig Dispense Refill Last Dose acyclovir 400 mg tablet Take 1 tablet by mouth in the morning and 1 tablet at noon and 1 tablet in the evening. 90 tablet 1 PNV no.95/ferrous fum/folic ac ( ORAL) Take by mouth. doxylamine (UNISOM, DOXYLAMINE,) 25 mg tablet Take 1 tablet by mouth at bedtime as needed for Nausea and Vomiting (N/V). 30 tablet 1 Not Taking pyridoxine, VITAMIN B-6, (VITAMIN B-6) 25 mg tablet Take 1 tablet by mouth every 6 (six) hours as needed for Nausea and Vomiting (N/V). 120 tablet 1 Not Taking SOCIAL HISTORY Tobacco History: Social History Tobacco Use Smoking Status Never Passive exposure: Never Smokeless Tobacco Never Drug History: Social History Substance and Sexual Activity Drug Use No Alcohol History: Social History Substance and Sexual Activity Alcohol Use Not Currently FAMILY HISTORY Family History Problem Relation Age of Onset Heart Father Hypertension Father Neurological Father stroke No Significant Medical Problems Mother No Significant Medical Problems Sister No Significant Medical Problems Brother No Significant Medical Problems Maternal Grandmother No Significant Medical Problems Maternal Grandfather Hypertension Paternal Grandmother Arthritis NoFHx Asthma NoFHx defects NoFHx Breast Cancer NoFHx Colon Cancer NoFHx Ovarian Cancer NoFHx Uterine Cancer NoFHx Cancer NoFHx Depression NoFHx Diabetes NoFHx Genetic NoFHx High cholesterol NoFHx Mental retardation NoFHx Osteoporosis NoFHx Psychiatry NoFHx Other - see comments NoFHx REVIEW OF SYSTEMS General: negative Constitutional: negative Eyes: negative ENT/Mouth: negative Cardiovascular: negative Respiratory: negative Gastrointestinal:pain Genitourinary: LOF Musculoskeletal: negative Skin/breast: negative Neurological: negative Psychiatric: negative Endocrine: negative Hemat/Lymph: negative Allergic/Immuno:none VITAL SIGNS BP: (125-140)/(80-92) Temp: [37.1 ?C (98.7 ?F)] Temp source: Oral (04/27 2058) Pulse: [79-88] Resp: [18] SpO2: [100 %] Height: [167.6 cm (5' 6")] Weight: [122.3 kg (269 lb 10 oz)] BMI (calculated): [43.52] PHYSICAL EXAMINATIONS General: alert and oriented x 3 (person, place, and date/time); no apparent distress Abdomen: fundal height - size greater than dates Extremities: no clubbing, cyanosis, or edema REVIEW OF LABORATORY, PATHOLOGY, AND RADIOLOGY DATA Lab results: CBC BMP PT/INR WBC (10*3/?L) Date Value 04/14/2023 7.76 No results found for: "NA" No results found for: "PT" RBC (10*6/?L) Date Value 04/14/2023 4.29 No results found for: "K" No results found for: "PTINR" PLT (10*3/?L) Date Value 04/14/2023 247 No results found for: "CA" HGB (g/dL) Date Value 04/14/2023 11.1 (L) No results found for: "CL" aPTT HCT (%) Date Value 04/14/2023 34.5 (L) No results found for: "BUN" No results found for: "APTTPAT" No results found for: "CREAT" No results found for: "GLU" No results found for: "TCO2" Type & Screen Rubella Varicella ABO & RH (no units) Date Value 02/03/2023 B Positive Rubella screen IgG (no units) Date Value 11/10/2022 Positive No results found for: "VZVG" No results found for: "TSABINT" Hep B HIV Syphilis No results found for: "HBS" No results found for: "HIV" No results found for: "SYPG" Group B Strep Chlamydia No results found for: "CGBS" C. trachomatis Nucleic Acid (no units) Date Value 04/14/2023 Negative X-ray results: none Placenta Accreta Screening Prior ? : Yes Prior Uterine Surgery?: No Placenta low lying/previa in current ? : No Screening outcome: A positive screening outcome indicates a history of prior delivery or prior uterine surgery, AND the presence of either a placenta low lying/previa or ultrasound suspicion of PASD in the current . Negative screening. DELIVERY PLAN RCS planned HEART RATE 145 cat 2 occasional variables ASSESSMENT AND PLAN 27 year old @39w1d with SROM Plan RCS Preop antibiotics. Principal Problem: Term of infant (04/27/2023) (POA: Yes) Active Problems: History of delivery, currently (04/01/2019) (POA: Unknown) High-risk in second trimester (02/06/2023) (POA: Unknown) Rupture of membranes with meconium present (04/27/2023) (POA: Yes) Jose Daley MD [facility] - Health Progress Notes Date/Time Note Provider Source 2023-04-14 08:15:00 Formatting of this n ote might be different from the original. Age: [age] year old GA: 37w2d CARLOS +FM 1. High-risk in third trimester 2. 37 weeks gestation of -Would like to be retested for HSV( see previous notes and lab results) because tested negative, although he is known to have cold sores - Advised to start her prophylactic antiviral as prescribed -Continue with kick count monitoring daily -Labor precautions given as follows: 1. Go to Labor and Delivery when your contractions are 5-7 minutes apart and you have been able to time them for an hour. If you live more than 30 minutes from the hospital, then go when they are 10 minutes apart and you have been able to time them for an hour. 2. BUT, there are 4 reasons to go to Labor and Delivery REGARDLESS of what else is happening, whether you are jt or not: 1. If your water breaks - - - it may be a gush or a constant trickle. If you are not sure, always come in to be checked. 2. Bleeding like your period. 3. If your baby's movements are less than 10 in an hour. If you are concerned this might be the case, drink a tall glass of cold fluids, lay down on your side on the couch or your bed and see how long it takes to note 10 movements - if less than 10, this needs to be evaluated immediately. 4. Contractions or Pain that is continuous. Normal labor contractions last only 45 seconds - 1 minute. - CBC WITH DIFF; Future - Group B Streptococcus By PCR; Future - GC & CHLAMYDIA AMPLIFIED ASSAY; Future - POCT URINALYSIS W/O SPECIFIC GRAVITY - HSV 1 AND 2 GLYCOPROTEIN G IGG; Future 3. History of delivery, currently ERLTCS scheduled on 04/30 4. Obesity affecting in third trimester 5. Unstable lie, antepartum, single or unspecified fetus BSUS: Cephalic - OB Ultrasound Transabdominal, Limited (>14 wks) CARLOS in 1 week or PRN Caryn Chavira MD [facility]
[2024-09-17 00:37] LABS: Absolute Basophils 0.2 K/uL (0-0.5); Absolute Eosinophils 0.3 K/uL (0-0.5); Absolute Lymphocytes (CBC) 3.2 K/uL (0.7-4.9); Absolute Monocytes 0.6 K/uL (0.1-1.3); Absolute Neutrophil 8.8 K/uL (1.8-8.0); Basophils % 1.2 % (0-1.3); Eosinophils % 2.1 % (0-4.4); Hematocrit 36.2 % (36.0-45.0); Hemoglobin 11.7 g/dL (12.0-15.0); Lymphocytes % 24.6 % (15.3-44.8); MCH 26.5 pg (27.0-35.0); MCHC 32.4 g/dL (32.0-36.0); MCV 81.9 fL (80-100); MPV 8.3 fL (7.6-11.3); Monocytes % 4.5 % (3.3-12.3); Neutrophils % 67.6 % (41.7-73.7); Nucleated Red Blood Cells % 0.1 % (0-0); Platelets 299 thou/uL (152-406); RBC Red Blood Cell Count 4.42 M/uL (3.86-4.86); Red Cell Distribution Width 14.7 % (12.1-15.2)
[2024-09-17 00:56] LABS: ALT/SGPT 25 U/L (13-56); Albumin 3.1 g/dL (3.4-5.0); Albumin/Globulin Ratio 0.7 (1.1-1.8); Alkaline Phosphatase 122 U/L (45-117); Anion Gap 8.8 mEq/L (5.0-15.0); BUN Blood Urea Nitrogen 15 mg/dL (7-18); Bicarbonate 25 mEq/L (21-32); Bilirubin Total 0.2 mg/dL (0.2-1.0); Globulin 4.3 g/dL (2.3-3.5); Glomerular Filtration Rate 126 ml/min (=/>90); Glucose Level 166 mg/dL (74-106); Potassium 3.8 mEq/L (3.5-5.1); Protein, Total 7.4 g/dL (6.4-8.2); Sodium Level 137 mEq/L (136-145)
[2024-09-17 00:57] LABS: AST/SGOT < 10 U/L (15-37)
[2024-09-17 00:58] LABS: Troponin High Sensitivity < 3.0 pg/mL (<58.9)
--- NOTE | 2024-09-17 03:02 | ER ---
Nurse's Notes [facility] Name: Juliana Boston Age: 28 yrs Sex: Female : 1995 Arrival Date: 09/16/2024 Time: 23:46 Bed 6 Private MD: Diagnosis: Chest pain, unspecified Presentation: 09/16 23:59 Chief complaint: Patient states: she started having mid to left sided chest pain last me1 Thursday. Pain is sharp, intermittent lasting less than a minute each time and occurs a couple of times a day. Had the pain tonight at about 11pm and pain was 5/10. worst was 8/10. Denies any associated sob, diaphoresis or nausea. Pain does not radiate. Coronavirus screen: Vaccine status: Patient reports being unvaccinated. Ebola Screen: No symptoms or risks identified at this time. Initial Sepsis Screen: Does the patient meet any 2 criteria? HR > 90 bpm. No. Patient's initial sepsis screen is negative. Does the patient have a suspected source of infection? No. Patient's initial sepsis screen is negative. Risk Assessment: Do you want to hurt yourself or someone else? Patient reports no desire to harm self or others. Onset of symptoms was September 11, 2024. 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 - Infectious Disease History:: Denies. - Social history:: Smoking status: Patient denies any tobacco usage or history of. Screenin:26 [facility] ED Fall Risk Assessment (Adult) History of falling in the last 3 months, dd2 including since admission No falls in past 3 months (0 pts) Confusion or Disorientation No (0 pts) Intoxicated or Sedated No (0 pts) Impaired Gait No (0 pts) Mobility Assist Device Used No (0 pt) Altered Elimination No (0 pt) Score/Fall Risk Level 0 - 2 = Low Risk Oriented to surroundings, Maintained a safe environment, Educated pt \T\ family on fall prevention, incl call for assistance when getting out of bed, Assessed \T\ reinforced patient's understanding of fall precautions, Hourly rounding (assess needs \T\ fall precautionary measures) done. Abuse screen: Denies threats or abuse. Nutritional screening: No deficits noted. Tuberculosis screening: No symptoms or risk factors identified. Assessment: 00:28 General: Appears in no apparent distress. Behavior is calm, cooperative, appropriate dd2 for age. Pain: Complains of pain in chest Pain does not radiate. Pain currently is 3 out of 10 on a pain scale. at worst was 8 out of 10 on a pain scale. Pain began X 6 DAYS AGO Is intermittent, lasting a few minutes. Neuro: Level of Consciousness is awake, alert, obeys commands, Oriented to person, place, time, situation, Appropriate for age. Cardiovascular: Reports chest pain, Patient's skin is warm and dry. Rhythm is sinus rhythm Chest pain is described as mild, quality is sharp, episodes are intermittent last < 1 minute. Respiratory: Airway is patent Respiratory effort is even, unlabored, Respiratory pattern is regular, symmetrical. GI: Abdomen is non-distended, Abd is soft and non tender X 4 quads. : No deficits noted. No signs and/or symptoms were reported regarding the genitourinary system. EENT: No deficits noted. No signs and/or symptoms were reported regarding the EENT system. Derm: No deficits noted. No signs and/or symptoms reported regarding the dermatologic system. Skin is healthy with good turgor. Musculoskeletal: No deficits noted. No signs and/or symptoms reported regarding the musculoskeletal system. Circulation, motion, and sensation intact. Range of motion: intact in all extremities. 01:54 Reassessment: Patient appears in no apparent distress at this time. Patient and/or bm8 family updated on plan of care and expected duration. Pain level reassessed. Patient is alert, oriented x 3, equal unlabored respirations, skin warm/dry/pink. Patient denies pain at this time. Patient states feeling better. Patient states symptoms have improved. 02:58 Reassessment: Patient appears in no apparent distress at this time. No changes from bm8 previously documented assessment. Patient and/or family updated on plan of care and expected duration. Pain level reassessed. Patient is alert, oriented x 3, equal unlabored respirations, skin warm/dry/pink. Vital Signs: 09/16 23:59 BP 139 / 89; Pulse 93; Resp 20; Temp 97.7; Pulse Ox 100% ; Weight 116.57 kg; Height 5 me1 ft. 7 in. ; Pain 5/10; 09/17 00:37 BP 108 / 70; Pulse 89; Resp 16; Pulse Ox 99% on R/A; dd2 01:54 BP 125 / 64; Pulse 89; Resp 17; Temp 97.7; Pulse Ox 100% ; Pain 0/10; bm8 02:30 BP 107 / 61; Pulse 89; Resp 16; Pulse Ox 98% on R/A; dd2 02:58 BP 118 / 74; Pulse 85; Resp 17; Temp 97.7; Pulse Ox 98% ; Pain 0/10; bm8 09/16 23:59 Body Mass Index 40.25 (116.57 kg, 170.18 cm) me1 09/16 23:59 Pain Scale: Adult me1 01:54 Pain Scale: Adult bm8 02:58 Pain Scale: Adult bm8 [place] Coma Score: 00:26 Eye Response: spontaneous(4). Motor Response: obeys commands(6). Verbal Response: dd2 oriented(5). Total: 15. 01:54 Eye Response: spontaneous(4). Motor Response: obeys commands(6). Verbal Response: bm8 oriented(5). Total: 15. 02:58 Eye Response: spontaneous(4). Motor Response: obeys commands(6). Verbal Response: bm8 oriented(5). Total: 15. ED Course: 09/16 23:50 Patient arrived in ED. [id number] 23:56 Tiffani Nair MD is Attending Physician. sd2 09/17 00:01 Triage completed. me1 00:01 Arm band placed on Patient placed in an exam room. me1 00:17 RADHA DE SANTIAGO, RN is Primary Nurse. dd2 00:26 Patient has correct armband on for positive identification. Bed in low position. Call dd2 light in reach. Side rails up X 1. Client placed on continuous cardiac and pulse oximetry monitoring. NIBP monitoring applied. dental scheduling coordinator on. Door closed. Noise minimized. Warm blanket given. Pillow given. Verbal reassurance given. 00:26 No provider procedures requiring assistance completed. Patient maintains SpO2 dd2 saturation greater than 95% on room air. 00:29 Initial lab(s) drawn, by me, sent to lab. EKG done, by ED staff, reviewed by Tiffani Nair MD. Inserted saline lock: 20 gauge in right antecubital area, using aseptic technique. Blood collected. Flushed with 10 mL NS. 01:19 XRAY Chest (1 view) In Process Unspecified. EDMS 01:54 Provided Education on: post er care. bm8 03:17 IV discontinued, intact, bleeding controlled, No redness/swelling at site. Pressure bm8 dressing applied. Administered Medications: No medications were administered Medication: 00:26 VIS not applicable for this client. dd2 Outcome: 03:02 Discharge ordered by . sd2 03:17 Discharged to home ambulatory, bm8 03:17 Condition: stable 03:17 Discharge instructions given to patient, family, Instructed on discharge instructions, follow up and referral plans. no drinking with medication, no driving heavy equipment, medication usage, safety practices, Demonstrated understanding of instructions, follow-up care, medications, 03:17 Patient left the ED. bm8 Signatures: Dispatcher [employer] EDMS Ashlie Wong [email or web address] Tiffani Nair MD MD sd2 Ivory Riggins, HERVE RN me1 Kristian Ross RN RN bm8 RADHA DE SANTIAGO RN RN dd2 Corrections: (The following items were deleted from the chart) 00:37 00:28 Pain: Complains of pain in chest Pain does not radiate. Pain currently is 3 out dd2 of 10 on a pain scale. at worst was 8 out of 10 on a pain scale. Is intermittent, lasting a few minutes. dd2 00:37 00:28 Cardiovascular: Reports chest pain, Patient's skin is warm and dry. Rhythm is dd2 sinus rhythm Chest pain is described as mild, quality is sharp, episodes are intermittent last < 1 minute dd2
--- NOTE | 2024-09-17 03:02 | EDPHYS ---
Physician Documentation [facility] Name: Juliana Boston Age: 28 yrs Sex: Female : 1995 Arrival Date: 09/16/2024 Time: 23:46 Bed 6 Private MD: ED Physician Tiffani Nair HPI: 09/17 00:06 This 28 yrs old Female presents to ER via Ambulatory with complaints of Chest sd2 Pain. 00:06 28 yo F presents with CC of intermittent left sided sharp chest pain for the past month sd2 that lasts only a few seconds. Reports has been more frequent over the past 5 days and happens about every other day sometimes when she's watching a dramatic episode on TV. Reports her watch has told her she may be in A-fib as well. Symptoms originally started after taking the Semaglutide shot once after which she bled for 25 days. Therefore, the medication was stopped. Reports her period is currently 2 days late but she is irregular. . 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 - Infectious Disease History:: Denies. - Social history:: Smoking status: Patient denies any tobacco usage or history of. ROS: 00:06 Constitutional: Negative for fever, chills, and weight loss, Eyes: Negative for injury, sd2 pain, redness, and discharge, 00:06 Respiratory: Negative for shortness of breath, cough, wheezing. Abdomen/GI: Negative for abdominal pain, nausea, vomiting, diarrhea. MS/Extremity: Negative for injury and deformity, Skin: Negative for injury, rash, and discoloration, Neuro: Negative for headache, numbness and tingling. 00:06 Cardiovascular: Positive for chest pain, Negative for edema, orthopnea, Exam: 00:06 Constitutional: This is a well developed, well nourished patient who is awake, alert, sd2 and in no acute distress. Head/Face: Normocephalic, atraumatic. Eyes: EOMI, normal conjunctiva bilaterally Chest/axilla: Normal chest wall appearance and motion. Nontender with no deformity. Cardiovascular: Regular rate and rhythm with a normal S1 and S2. No gallops, murmurs, or rubs. 2+ distal pulses. Respiratory: Lungs have equal breath sounds bilaterally, clear to auscultation and percussion. No rales, rhonchi or wheezes noted. No increased work of breathing, no retractions or nasal flaring. Abdomen/GI: Soft, non-tender, with normal bowel sounds. No guarding or rebound. No evidence of tenderness throughout. Skin: Warm, dry with normal turgor. Normal color with no rashes, no lesions, and no evidence of cellulitis. MS/ Extremity: Pulses equal, no cyanosis. Neurovascular intact. Full, normal range of motion. Psych: Awake, alert, with orientation to person, place and time. Behavior, mood, and affect are within normal limits. 00:32 ECG was reviewed by the Attending Physician. NSR, rate 86, no STEMI criteria sd2 Vital Signs: 09/16 23:59 BP 139 / 89; Pulse 93; Resp 20; Temp 97.7; Pulse Ox 100% ; Weight 116.57 kg; Height 5 me1 ft. 7 in. ; Pain 5/10; 09/17 00:37 BP 108 / 70; Pulse 89; Resp 16; Pulse Ox 99% on R/A; dd2 01:54 BP 125 / 64; Pulse 89; Resp 17; Temp 97.7; Pulse Ox 100% ; Pain 0/10; bm8 02:30 BP 107 / 61; Pulse 89; Resp 16; Pulse Ox 98% on R/A; dd2 02:58 BP 118 / 74; Pulse 85; Resp 17; Temp 97.7; Pulse Ox 98% ; Pain 0/10; bm8 09/16 23:59 Body Mass Index 40.25 (116.57 kg, 170.18 cm) me1 09/16 23:59 Pain Scale: Adult me1 01:54 Pain Scale: Adult bm8 02:58 Pain Scale: Adult bm8 [place] Coma Score: 00:26 Eye Response: spontaneous(4). Motor Response: obeys commands(6). Verbal Response: dd2 oriented(5). Total: 15. 01:54 Eye Response: spontaneous(4). Motor Response: obeys commands(6). Verbal Response: bm8 oriented(5). Total: 15. 02:58 Eye Response: spontaneous(4). Motor Response: obeys commands(6). Verbal Response: bm8 oriented(5). Total: 15. MDM: 09/16 23:56 Medical Screening Exam initiated sd2 09/17 00:06 Differential diagnosis: MSK, anxiety, medication effect, ACS, costochondritis, PE, sd2 anemia, PTX among others. Data reviewed: vital signs, nurses notes, lab test result(s), EKG, radiologic studies. 02:49 Counseling: I had a detailed discussion with the patient and/or guardian regarding the sd2 historical points, exam findings, and any diagnostic results supporting the discharge/admit diagnosis, lab results, radiology results, the need for outpatient follow up, to return to the emergency department if symptoms worsen or persist or if there are any questions or concerns that arise at home. ED course: Labs and imaging reviewed. labs grossly WNCL. Trop neg. EKG with no ischemic changes. No events noted on tele. CXR with no acute process. Pt with no current pain. Advised of need for outpatient follow up with PCP regarding symptoms. She is comfortable with plan for dc and outpatient follow up and verbalizes understanding of strict return precautions. . 09/17 00:06 Order name: CBC with Diff; Complete Time: 01:18 sd2 09/17 00:06 Order name: CMP; Complete Time: 01:18 sd2 09/17 00:06 Order name: Troponin High Sensitivity; Complete Time: 01:18 sd2 09/17 00:28 Order name: Test, Serum; Complete Time: 01:18 lg3 09/17 00:06 Order name: XRAY Chest (1 view) sd2 09/17 00:06 Order name: EKG; Complete Time: 00:06 sd2 09/17 00:06 Order name: Telemetry; Complete Time: 00:30 sd2 Administered Medications: No medications were administered Disposition Summary: 09/17/24 03:02 Discharge Ordered Problem: new sd2 Symptoms: are resolved sd2 Condition: Stable sd2 Diagnosis - Chest pain, unspecified sd2 Followup: sd2 - With: Private Physician - When: 2 - 3 days - Reason: Recheck today's complaints, Continuance of care, Re-evaluation by your physician Discharge Instructions: - Discharge Summary Sheet sd2 - Nonspecific Chest Pain, Adult sd2 Forms: - Medication Reconciliation Form sd2 - Antibiotic Education sd2 - Prescription Opioid Use sd2 - Patient Portal Instructions sd2 - Leadership Thank You Letter sd2 Signatures: Dispatcher [employer] Tiffani Arboleda MD MD sd2 Ivory Riggins RN RN me1
--- NOTE | 2024-09-17 03:15 | RAD REPORT ---
EXAM: XR Chest, 1 View CLINICAL HISTORY: The patient is 28 years old and is Female; CHEST PAIN TECHNIQUE: Frontal view of the chest. COMPARISON: No relevant prior studies available. FINDINGS: LIMITATIONS: Suboptimal study secondary to artifact related to patient body habitus. LUNGS: Unremarkable. No consolidation. PLEURAL SPACE: Unremarkable. No pneumothorax. HEART: Unremarkable. No cardiomegaly. MEDIASTINUM: Unremarkable. Normal mediastinal contour. BONES/JOINTS: Unremarkable. No acute fracture. UPPER ABDOMEN: Unremarkable as visualized. IMPRESSION: No acute cardiopulmonary process. Electronically signed by: Siria Dawn MD 09/17/2024 02:[address] [facility] Due to temporary technical issues with the PACS/CloudBeds reporting system, reports are being henna d by the in-house radiologist without review as a courtesy to ensure prompt reporting the interpreting radiologist is fully responsible for the content of the report. Transcribed Date/Time: 09/17/2024 7:15 AM
[2024-09-17 03:35] VITALS: TEMP 97.7
[2024-09-17 03:38] VITALS: O2SAT 98
[2024-09-17 03:40] VITALS: BP 118/74
--- NOTE | 2024-09-19 11:16 | EKG ---
Test Date: 2024-09-17 Test Time: 00:20:55 Metal Bending Machine Operator: JOHN MEASUREMENT RESULTS: Intervals: Rate: 86 MS: 130 QRSD: 90 QT: 380 QTc: 454 Harriet: P: 44 MS: 130 QRS: 56 T: 30 INTERPRETIVE STATEMENTS: Normal sinus rhythm Normal ECG Compared to ECG 09/21/2015 22:24:03 Sinus bradycardia no longer present Short MS interval no longer present Electronically Signed On 09-19-24 11:12:13 LAYDOWN MACHINE OPERATOR by Tayo Christian
== END 2024-09-17 03:17 | disposition home or self-care (01) ==
LOC: ER 23:46
DX: R07.9 Chest pain, unspecified (principal)
CPT/HCPCS: 36415; 71045; 80053; 84484; 84703; 85025; 93005; 99284